=== PATIENT | female | born 1990 | race Caucasian/White ===

== ENCOUNTER 2019-06-17 23:00 | Emergency (ER) | payer MEDICAID, SELFPAY ==
[2019-06-17 23:04] VITALS: BP 120/82; PULSE 98; RESP 17; TEMP 36.7; O2SAT 99; BMI 40.7
[2019-06-17 23:09] VITALS: BP 98/51; PULSE 74; RESP 18; TEMP 36.8; O2SAT 100
--- NOTE | 2019-06-17 23:12 | ED_ITS ---
Entered by Gabriela Lorenzo, acting as scribe for Janel Ehcevarria HPI - Headache General: Chief Complaint: Headache Stated Complaint: congested/headache Time Seen by Provider: 06/17/19 23:12 Source: patient and family Mode of arrival: ambulatory History of Present Illness: HPI Narrative: 28 y/o female presents to the ED with complaint of PATEL. Pt states she has had this discomfort for about a week. She reports light sensitivity and sound sensitivity. Pt has hx of migranes but this episode is much worse than previous. MD elicited complaint: headache Pertinent past history: migraines Onset (ago): week(s) (1) Onset description: suddenly Location: frontal Severity: moderate Quality & Timing: throbbing Exacerbating factors: movement of head/neck, light and noise Relieving factors: nothing Associated symptoms: Reports eye pain, photophobia and sound sensitivity; Deny chest pain, confusion, diaphoresis, fever(s), loss of vision, malaise, nausea, neck stiffness, pre-syncope, rash, syncope or vomiting Review of Systems 2 General: Reports: other (negative unless marked) Const: Denies: fever, chills, body aches, fatigue, malaise or diaphoresis Eyes: Denies: change in vision or blurry vision ENMT: Denies: throat pain, painful swallowing, hoarseness, ear pain, ear discharge, Change in hearing or nasal discharge Card: Denies: chest pain, palpitations, irregular heart rhythm, syncope, pre- syncope, shortness of breath on exertion or shortness of breath when lying down Resp: Denies: shortness of breath, productive cough, non-productive cough, wheezing, coughing up blood or chest congestion GI: Denies: abdominal pain, nausea, vomiting, vomiting blood, coffee grounds in vomit, diarrhea, constipation, cramping, blood in stool or black tarry stool : Denies: flank pain, painful urination, urinary frequency, urinary urgency, decreased urine ouput, urinary incontinence or blood in urine Musc: Denies: neck pain, back pain, extremity pain, extremity swelling, joint pain, joint swelling, joint warmth or joint stiffness Skin/Breast: Denies: rash, skin tenderness or yellow skin Neuro: Denies: numbness in extremities, weakness in extremities, changes in sensation, lack of coordination, difficulty walking, dizziness, vertigo or confusion Endo: Denies: excessive thirst, tired all the time, cold intolerance, excessive sweating, flushing or hot flashes Gregory/Lymph: Denies: easy bruising, easy bleeding, petechiae or enlarged lymph nodes All/Imm: Denies: hives, throat swelling, tongue swelling, facial swelling or acute wheezing PFSH ED PFSH: Statuses (acute, chronic, etc) shown below reflect problem list status as previously entered and may not be historically accurate Social History Smoking and tobacco status: current every day smoker Physical Exam Const: COMMON NORMALS: no apparent distress, oriented x3, no limitations, healthy appearing and well nourished EXAM LIMITATIONS: no altered mental status GENERAL APPEARANCE: cooperative, well kempt and well developed ORIENTATION/CONSCIOUSNESS: Yes awake HENMT: COMMON NORMALS: normocephalic, head/scalp atraumatic, hearing grossly normal bilaterally, external ears normal, EAC's normal, external nose normal and moist oral mucous membranes HEAD & SCALP: normal to inspection, normocephalic and atraumatic FACE & SINUS: normal facial exam and face symmetric NOSE: external nose normal and nares normal EXTERNAL EAR: Yes external ears normal EXTERNAL AUDITORY CANAL: EAC's normal MOUTH: oral and palatal mucosa normal and tongue normal Eye: COMMON NORMALS: PERRL, EOMs intact bilaterally, conjunctivae normal and no scleral icterus GENERAL EYE: normal appearance of both eyes and normal light reflex CONJUNCTIVA: Yes conjunctivae normal SCLERA: sclerae normal CORNEA: Yes corneas normal PUPIL: Yes PERRL DIRECT OPHTHALMOSCOPY: Yes normal light reflex and Yes photophobia Neck/C-Spine: COMMON NORMALS: full ROM, no lymphadenopathy, supple, no meningeal signs and no JVD GENERAL: Yes normal visual inspection and Yes trachea midline CERVICAL SPINE: Yes cervical ROM normal Chest: COMMONS NORMALS: inspection of chest normal and palpation of chest normal Resp: COMMON NORMALS: normal respiratory effort, no retractions, no use of accessory muscles and clear to auscultation bilaterally EFFORT & INSPECTION: Yes able to speak in complete sentences AUSCULTATION: clear to auscultation bilaterally Cardio: COMMON NORMALS: no JVD, regular rate, regular rhythm, S1 normal heart sound, S2 normal heart sound, no gallops, no clicks, no murmurs and no rub JUGULAR VENOUS DISTENTION: no JVD RATE: regular rate RHYTHM: regular rhythm HEART SOUNDS: S1 normal and S2 normal GI: COMMON NORMALS: soft to palpation, non-tender, no hepatosplenomegaly and no masses INSPECTION: Yes normal to inspection PALPATION: Yes soft and Yes no hepatosplenomegaly : COMMON NORMALS: Yes no CVA tenderness BLADDER/KIDNEY EXAM: Yes no CVA tenderness Back/Pelvis: COMMON NORMALS: no CVA tenderness, thoracic and lumbar spine normal to inspection, no thoracic nor lumbar tenderness and thoraco-lumbar ROM normal Extremity: COMMON NORMALS: normal to inspection, full ROM, normal capillary refill, no joint enlargement, no clubbing, cyanosis or edema and no calf tenderness Neuro: COMMON NORMALS: oriented x3, CN's II-XII intact bilaterally, moves all extremities, no focal motor deficits and no sensory deficits noted MENINGEAL SIGNS: Yes no meningeal signs Psych: COMMON NORMALS: mental status grossly normal, thought process normal, cooperative, affect normal, speech normal and activity/motor behavior normal APPEARANCE: Yes well kempt SPEECH: Yes normal speech THOUGHT PROCESS: normal thought process Skin: COMMON NORMALS: no rashes or lesions noted, skin turgor normal, no jaundice, no petechiae and no mottling GENERAL SKIN EXAM: no rashes or lesions noted and turgor normal Course Vital Signs: Vital signs: Vital Signs Temperature 98.3 F 06/17/19 23:09 Pulse Rate 74 06/18/19 00:57 Respiratory Rate 18 06/18/19 00:57 Blood Pressure 108/60 06/18/19 00:57 Pulse Oximetry 100 06/18/19 00:57 MDM - Headache MDM Narrative: Medical decision making narrative: 00:44 -patient comes in with a headache that is been present for a week and a half. It was gradual in onset and not a sudden onset thunderclap type headache. She has no fever, stiff neck and no vomiting. She has no rash. Her white count was slightly elevated and I did recommend and offered to do a spinal tap but the patient refused. Clinically at this time she is much better. She also had a component this sounded like a cluster headache and by applying oxygen here she did get better. She does agree to return should her symptoms change or worsen but at this time she is feeling much better and would like to go home. Lab Data: Attestation: I reviewed the patient's lab results. Labs: Lab Results 06/17/19 06/17/19 06/18/19 Range/Units 23:38 23:38 00:23 WBC 16.5 H (4.0-10.0) 10^3/ uL RBC 4.42 (4.1-5.3) 10^6/u L Hgb 11.9 (11.5-15.3) g/dL Hct 37.9 (37.0-47.0) % MCV 85.7 (81-99) fL MCH 26.9 L (28.0-34.0) pg MCHC 31.4 (30.0-36.0) g/dL RDW 12.2 (12.1-15.1) % Plt Count 341 (130-400) 10^3/c mm MPV 10.0 (7.4-10.4) fL Neut % (Auto) 66.7 % Lymph % (Auto) 26.5 % [place] % (Auto) 4.5 % Eos % (Auto) 1.5 % Baso % (Auto) 0.5 % Neut # (Auto) 11.0 H (1.8-7.7) 10^3/u L Lymph # (Auto) 4.4 (0.8-4.8) 10^3/u L [place] # (Auto) 0.8 (0.2-0.9) 10^3/u L Eos # (Auto) 0.2 (0.0-0.8) 10^3/u L Baso # (Auto) 0.1 (0.0-0.1) 10^3/u L Nucleated RBC % (a uto) 0 % Nucleated RBCs # 0.0 /100WBC Sodium 134 L (136-145) mmol/L Potassium 3.7 (3.5-5.1) mmol/L Chloride 100 (98-107) mmol/L Carbon Dioxide 21 L (22-29) mmol/L Anion Gap 16.7 (5-19) BUN 15 (6-20) mg/dL Creatinine 0.7 (0.5-0.9) mg/dL GFR Calculation 98.9 (90-130) mL/min Glucose 87 (74-109) mg/dL Calcium 9.9 (8.6-10.0) mg/Dl Total Bilirubin 0.3 (0.15-1.2) mg/dL AST 21 (0-32) U/L ALT 21 (0-33) U/L Alkaline Phosphata se 100 (35-105) IU/L Total Protein 8.0 (6.6-8.7) g/dL Albumin 4.3 (3.5-5.2) g/dL Globulin 3.7 (1.3-4.6) g/dL Urine Color Yellow (Yellow) Urine Appearance Clear (CLEAR) Urine pH 5 (5-7) Ur Specific Gravit y 1.015 (1.005-1.030) Urine Protein Neg (Negative) Urine Glucose (UA) Norm (Normal) Urine Ketones Negative (Negative) Urine Occult Blood Neg (Negative) Urine Nitrate Negative (Negative) Urine Bilirubin Neg (NEGATIVE) Urine Urobilinogen Norm (Negative) mg/dL Ur Leukocyte Fartun ase Negative (Negative) Urine RBC 0-4 H (0-2) /hpf Urine WBC 5-10 H (0-5) /hpf Ur Squamous Epith Cells 25-40 H (0-5) Urine Bacteria 2+ H (NONE) Urine Mucus 1+ Discharge Plan Discharge Patient Disposition: Home, Self-Care Clinical Impression: Migraine Qualifiers: Migraine type: without aura Status migrainosus presence: with status migrainosus Intractability: not intractable Qualified Code(s): G43.001 - Migraine without aura, not intractable, with status migrainosus Cluster headache syndrome Qualifiers: Headache chronicity pattern: unspecified pattern Intractability: not intractable Qualified Code(s): G44.009 - Cluster headache syndrome, unspecified, not intractable Condition: Stable Prescriptions: New Zofran 4 mg tablet 4 mg PO DAILY PRN (Reason: nausea and vomiting) 5 Days Qty: 20 RF: 0 Discharge Orders: Discharge Order (Routine); Ordered 06/18/19 Ordered By: Janel Echevarria Referrals: Jose Larson MD [Family Provider] - 1-3 days Discharge Diet: Usual diet Discharge Activity: Increase activity as tolerated Patient Instructions: Cluster Headache (ED), Migraine Headache (ED), Acute Headache (ED) Activity Restrictions/Additional Instructions: Please return to the ER immediately for any of the signs or symptoms listed on your discharge instruction sheets, worsening/changing of your symptoms, you are not getting better as quickly as expected, or for ANY other cause or concerns. I have recommended and offered a spinal tap/lumbar puncture to rule out meningitis but you have refused. If your symptoms change, you develop a fever, you develop neck pain or stiffness please return to the ER immediately for recheck. Discharge Date/Time: 06/18/19 00:59 Coding Level of Care Code ED Lens Marker for Chg Fwd Exam Problem Focused The documentation recorded by the Bj jones Ashley, accurately reflects the service I personally performed and the decisions made by me, Janel Echevarria
--- NOTE | 2019-06-17 23:21 | CTR_ITS ---
PROCEDURE INFORMATION: Exam: CT Head Without Contrast Exam date and time: 06/17/2019 11:22 PM Age: 28 years old Clinical indication: Pain; Headache not specified; Additional info: Mac/ams TECHNIQUE: Imaging protocol: Computed tomography of the head without contrast. Total DLP: 1822.99 mGy-cm Radiation optimization: All CT scans at this facility use at least one of these dose optimization techniques: automated exposure control; mA and/or kV adjustment per patient size (includes targeted exams where dose is matched to clinical indication); or iterative reconstruction. COMPARISON: CT head wo con* [id number] 04/08/2017 5:35 PM FINDINGS: Brain: Normal. No hemorrhage. Unremarkable white matter. No mass effect. Ventricles: Normal. No ventriculomegaly. Bones/joints: Unremarkable. No acute fracture. Sinuses: Paranasal sinus opacifications. Mastoid air cells: Visualized mastoid air cells are well aerated. Soft tissues: Unremarkable. CT/CT head wo con* [id number] IMPRESSION: Negative for intracranial hemorrhage or mass effect. Radiation Dose CTDIVOL = (mGy): DLP = 1822.99 (mGy-cm)
[2019-06-17 23:45] LABS: Basophils # 0.1 10^3/uL (0.0-0.1); Basophils % 0.5 %; Eosinophils # 0.2 10^3/uL (0.0-0.8); Eosinophils % 1.5 %; Hematocrit 37.9 % (37.0-47.0); Hemoglobin 11.9 g/dL (11.5-15.3); Lymphocytes # 4.4 10^3/uL (0.8-4.8); Lymphocytes % 26.5 %; Mean Corpuscular HGB Conc 31.4 g/dL (30.0-36.0); Mean Corpuscular Hemoglobin 26.9 pg (28.0-34.0); Mean Corpuscular Volume 85.7 fL (81-99); Monocytes # 0.8 10^3/uL (0.2-0.9); Monocytes % 4.5 %; Neutrophils % 66.7 %; Nucleated Red Blood Cells % 0 %; Platelet Count 341 10^3/cmm (130-400); Red Blood Count 4.42 10^6/uL (4.1-5.3); Red Cell Distribution Width 12.2 % (12.1-15.1); White Blood Count 16.5 10^3/uL (4.0-10.0)
--- NOTE | 2019-06-17 23:52 | PC.NURSE ---
Introduced self to patient and initiated vital signs. Pt is A&O x 4 and agreeable. Pt states that the reason for the ER visit today is due to headache and congestion. Reassured patient of needs and will continue to monitor. Awaiting provider at bedside.
[2019-06-17 23:57] LABS: Alanine Aminotransferase 21 U/L (0-33); Albumin Level 4.3 g/dL (3.5-5.2); Alkaline Phosphatase 100 IU/L (35-105); Anion Gap 16.7 (5-19); Blood Urea Nitrogen 15 mg/dL (6-20); Calcium 9.9 mg/Dl (8.6-10.0); Carbon Dioxide 21 mmol/L (22-29); Chloride 100 mmol/L (98-107); Globulin 3.7 g/dL (1.3-4.6); Glomerular Filtration Rate 98.9 mL/min (90-130); Glucose 87 mg/dL (74-109); Potassium 3.7 mmol/L (3.5-5.1); Sodium 134 mmol/L (136-145); Total Bilirubin 0.3 mg/dL (0.15-1.2)
[2019-06-18 00:57] VITALS: BP 108/60; PULSE 74; RESP 18; O2SAT 100
[2019-06-18 01:04] LABS: Bacteria Urine 2+; Bilirubin Urine Neg (NEGATIVE); Blood Urine Neg (Negative); Glucose Urine UA Norm (Normal); Ketones Urine Negative (Negative); Leukocyte Esterase Urine Negative (Negative); Mucus Urine 1+; Nitrate Urine Negative (Negative); Protein Urine Neg (Negative); RBC Urine 0-4 /hpf (0-2); Specific Gravity, Urine 1.015 (1.005-1.030); Squamous Epithelial Cell Urine 25-40 (0-5); Urine Appearance Clear (CLEAR); Urine Color Yellow (Yellow); Urobilinogen Urine Norm (Negative); pH Urine 5 (5-7)
[2019-06-18 01:05] LABS: Add Urine Culture? No
[2019-06-18 01:54] LABS: Aspartate Amino Transferase 21 U/L (0-32)
== END 2019-06-18 00:59 | disposition home or self-care (01) ==
PROVIDERS: Emergency Provider Emergency Medicine; Family Provider Pediatrics
DX: G43.001 Migraine without aura, not intractable, with status migrainosus (principal); F17.210 Nicotine dependence, cigarettes, uncomplicated
CPT/HCPCS: 70450; 80053; 81001; 85025; 99282

== ENCOUNTER 2019-10-27 13:50 | Emergency (ER) | payer MEDICAID, SELFPAY ==
[2019-10-27 14:39] VITALS: BP 124/81; PULSE 67; RESP 18; TEMP 36.9; O2SAT 97; BMI 35.4
[2019-10-27 15:50] VITALS: RESP 17
--- NOTE | 2019-10-27 16:07 | W.ED.SKABFB ---
HPI - Skin/Abscess/Foreign Bdy General: Chief complaint: Skin/Abscess/Foreign Body Stated complaint: rash R thigh, possible abscess Time Seen by Provider: 10/27/19 16:02 Source: patient Mode of arrival: ambulatory Limitations: no limitations History of Present Illness: HPI narrative: Patient is a 29-year-old female who presents to ED today with complaints of a possible abscess to her right thigh that she noticed over the past few days. Patient states she has had these previously and they have went away on their own however one has never been this large before. She is not having any drainage. No fevers. MD complaint: abscess/boil Onset (ago): day(s) Tetanus up to date: yes Location: RLE Severity: moderate Quality: burning Pain Consistency: constant Relieving factors: none Exacerbating factors: none Associated symptoms: Deny fever(s) Review of Systems Const: Denies: fever(s) Skin/Breast: Reports: new lesions Neuro: Denies: numbness in extremities or sensory changes PFS ED PFSH: Social History Smoking and tobacco status: current every day smoker Physical Exam Const: COMMON NORMALS: no acute distress, patient oriented x3, no limitations and alert Extremity: COMMON NORMALS: normal to inspection and full ROM GENERAL: Yes normal exam except as noted OTHER: see skin assessment Neuro: COMMON NORMALS: patient oriented x3 SENSORIUM/ORIENTATION: Yes alert Skin: NARRATIVE SKIN EXAM: pt with 4in x 2.5in annular area to R lateral thigh with central mild hemorrhage; there is vesication to the center and superior portion of lesion (she states this has been present with other previous lesions as well) Course Vital Signs: Vital signs: Vital Signs Temperature 98.5 F 10/27/19 14:39 Pulse Rate 67 10/27/19 14:39 Respiratory Rate 18 10/27/19 14:39 Blood Pressure 124/81 10/27/19 14:39 Pulse Oximetry 97 10/27/19 14:39 MDM - Skin/Abscess/Foreign Bdy MDM Narrative: Medical decision making narrative: lesion does not look characteristically like an abscess; it looks more like a spider bite however she states she has had these before so would be unlikely that she would have multiple spider bites previously; does not appear herpetic; will go ahead and place patient on Bactrim; recommend close follow-up in 48 hours if lesion is continuing to worsen despite antibiotic therapy Discharge Plan Discharge Patient Disposition: Home, Self-Care Clinical Impression: Abscess of right thigh Condition: Stable Prescriptions: New Bactrim DS 800-160 mg tablet 1 tab PO BID 7 Days Qty: 14 RF: 0 Discharge Orders: Discharge Order (Routine); Ordered 10/27/19 Ordered By: Britt Cee Activity Restrictions/Additional Instructions: Return to ED in 48 hours if abscess continues to worsen despite antibiotic therapy. Discharge Date/Time: 10/27/19 16:24 Coding Level of Care Code ED Signing Teacher for Rivas Hart
[2019-10-27 16:23] VITALS: BP 123/79; PULSE 18; RESP 65; O2SAT 98
== END 2019-10-27 16:24 | disposition home or self-care (01) ==
PROVIDERS: Emergency Provider Physician Assistant
DX: L02.415 Cutaneous abscess of right lower limb (principal); F17.210 Nicotine dependence, cigarettes, uncomplicated
CPT/HCPCS: 12345; 99282

== ENCOUNTER → 2019-11-28 09:21 | Outpatient (BNVA) | payer MEDICAID, SELFPAY | PROVIDERS: Visit Provider Obstetrics & Gynecology | DX: Z01.419 Encounter for gynecological examination (general) (routine) without abnormal findings (principal) | CPT/HCPCS: 85025 ==

== ENCOUNTER 2019-12-24 21:35 | Emergency (ER) | payer MEDICAID, SELFPAY ==
[2019-12-24 21:39] VITALS: BP 113/77; PULSE 98; RESP 18; TEMP 36.8; O2SAT 98; BMI 35.4
--- NOTE | 2019-12-24 22:04 | ED_ITS ---
HPI - General Adult General: Chief complaint: General Medical Stated complaint: sore throat Time Seen by Provider: 12/24/19 21:48 Source: patient Mode of arrival: ambulatory Limitations: no limitations History of Present Illness: HPI narrative: Patient comes in today with complaints of sore throat starting yesterday. Patient also reports some chills. Patient appears well. Patient appears no acute distress. Patient does also report some tonsillar enlargement with white patches. Review of Systems General: Reports: 10 or more systems reviewed and unremarkable except in HPI and below ENMT: Reports: throat pain PFSH ED PFSH: Medical History (Updated 12/24/19 @ 22:35 by JEANMARIE Miller) Asthma -Diagnosed as a child-uses it intermittently-last use was in spring 2019. Bipolar 1 disorder -Diagnosed in her early 20s seizures-was on medication in the past but has not seen a therapist or been on medication since at least 2014. Denies suicidal/homicidal ideation today. No pertinent past medical history Denies: high blood pressure, diabetes, heart, liver, kidney, thyroid, bleeding problems, or clotting problems. PCP: None Surgical History S/P eye surgery 1997--Performed at [facility] in [place], [place] --- Eye surgery done after trauma to eye S/P tubal ligation 08/27/2018--Bilateral tubal ligation @ [place], [place]. Dr. Montano. Family History Family/Other Seizure uncle and cousin Mother Asthma Sister Asthma Father Hypertension Hyperlipidemia Heart disease Diabetes Brother Hypertension Grandmother Hypertension paternal Heart disease paternal Grandfather Hypertension paternal Denies family history of Colon cancer Ovarian cancer Uterine cancer Thyroid condition Stroke Social History Smoking and tobacco status: current every day smoker Alcohol intake: unknown Additional social history: - Tobacco Use: Started smoking at age 17 and has smoked up to 1/2 pack per day since then. Currently smokes 2-3 cigarettes daily. 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 Has not used any other drugs in the past. -Denies current use of any drugs. 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 Female Reproductive History: Date of last menstrual period: 12/24/19 Physical Exam Const: COMMON NORMALS: no acute distress and patient oriented x3 GENERAL APPEARANCE: cooperative HENMT: COMMON NORMALS: normocephalic, TM's normal bilaterally and Normal external nose present HEAD & SCALP: normal to inspection and normocephalic NOSE: Normal external nose present TYMPANIC MEMBRANE: TM's normal bilaterally MOUTH: Normal oral and palatal mucosa present THROAT: abnormal tonsil bilateral exudates and hypertrophy Eye: GENERAL EYE: appearance normal, both eyes and all related structures Neck/C-Spine: COMMON NORMALS: full ROM Lymph: LYMPHATIC: no lymphadenopathy noted Chest: COMMONS NORMALS: normal inspection of the chest Resp: COMMON NORMALS: normal respiratory effort EFFORT & INSPECTION: Yes able to speak in complete sentences Cardio: COMMON NORMALS: regular rate and regular rhythm RATE: regular rate RHYTHM: regular rhythm GI: COMMON NORMALS: non-tender Back/Pelvis: COMMON NORMALS: thoracic and lumbar spine normal to inspection Extremity: COMMON NORMALS: normal to inspection Neuro: COMMON NORMALS: patient oriented x3 and moves all extremities Psych: COMMON NORMALS: mental status grossly normal and cooperative Skin: COMMON NORMALS: no rashes or lesions noted GENERAL SKIN EXAM: no rashes or lesions noted Course Vital Signs: Vital signs: Vital Signs Temperature 98.3 F 12/24/19 21:39 Pulse Rate 98 12/24/19 21:39 Respiratory Rate 18 12/24/19 21:39 Blood Pressure 113/77 12/24/19 21:39 Pulse Oximetry 98 12/24/19 21:39 MDM - General Adult MDM Narrative: Medical decision making narrative: Patient comes in with a sore throat, tonsillar enlargement, and exudate to tonsils. Patient does report history of strep. Differential diagnosis includes but not limited to strep pharyngitis, tonsillitis, infectious mono. Strep test was positive. Reviewed exam with patient with recommendations for treatment. Patient reports understanding agreed to plan. Lab Data: Labs: Lab Results 12/24/19 Range/Units 22:07 Group A Strep Rapi d Positive H (Negative) Discharge Plan Discharge Patient Disposition: Home Clinical Impression: Strep pharyngitis Condition: Stable Prescriptions: New amoxicillin 500 mg tablet 1,000 mg PO BID 10 Days Qty: 40 RF: 0 Discharge Orders: Discharge Order (Routine); Ordered 12/24/19 Ordered By: Tito Soto Discharge Diet: Usual diet Discharge Activity: Increase activity as tolerated Patient Instructions: Strep Throat (ED) Activity Restrictions/Additional Instructions: Take antibiotics as directed. After 24 hours he should be noncontagious. Use acetaminophen or ibuprofen for pain. Avoid really acidic or spicy foods. Take antibiotics until you are feeling better and then for at least another 24 hours. Change out toothbrush after 24 hours. Follow-up with primary care for worsening signs and symptoms or new concerns. Coding Level of Care Code ED Vacuum Caster for Rivas Hart Exam Comprehensive
[2019-12-24 22:20] LABS: Rapid Strep A Test Positive (Negative)
[2019-12-24] MEDS: dexamethasone 4 mg Tablet 10 MG PO (22:51)
[2019-12-24] MEDS: amoxicillin 500 mg Capsule 1000 MG PO (22:52)
[2019-12-24 22:53] VITALS: BP 122/80; PULSE 74; RESP 18; O2SAT 99
== END 2019-12-24 22:55 | disposition home or self-care (01) ==
PROVIDERS: Emergency Provider Nurse Practitioner Family
DX: J02.0 Streptococcal pharyngitis (principal); F17.210 Nicotine dependence, cigarettes, uncomplicated
CPT/HCPCS: 12345; 87880; 99281; 99283; J8540

== ENCOUNTER 2020-03-16 21:28 | Emergency (ER) | payer MEDICAID, SELFPAY ==
[2020-03-16 21:31] VITALS: BP 110/72; PULSE 96; RESP 16; TEMP 36.4; O2SAT 97; BMI 35.4
--- NOTE | 2020-03-16 21:39 | W.ED.EXTPRO ---
HPI - Extremity Problem General: Chief complaint: Extremity Injury, Lower Stated complaint: fall, pain in ankles and knee Time Seen by Provider: 03/16/20 21:39 History of Present Illness: HPI Narrative: Patient was stepping off a step and and fell twisting her right and left ankle she says. She also landed on her right knee and bilateral palms of the hand. Patient complains of abrasion to the right knee as her main complaints but also has some tenderness to her left ankle. Patient also has some mild tenderness to her left palm. Patient appears well. Patient appears no acute distress. Patient states that her boss from her employment recommend that she be evaluated in the ER for Workmen's Comp. Review of Systems General: Reports: 10 or more systems reviewed and unremarkable except in HPI and below Musc: Reports: joint pain Skin/Breast: Reports: other (abrasion) [facility] ED PFSH: Medical History (Updated 03/16/20 @ 21:45 by JEANMARIE Miller) Asthma -Diagnosed as a child-uses it intermittently-last use was in spring 2019. Bipolar 1 disorder -Diagnosed in her early 20s seizures-was on medication in the past but has not seen a therapist or been on medication since at least 2014. Denies suicidal/homicidal ideation today. No pertinent past medical history Denies: high blood pressure, diabetes, heart, liver, kidney, thyroid, bleeding problems, or clotting problems. PCP: None Surgical History S/P eye surgery 1997--Performed at [facility] [place] --- Eye surgery done after trauma to eye S/P tubal ligation 08/27/2018--Bilateral tubal ligation @ [place], [place]. Dr. Montano. Family History Family/Other Seizure uncle and cousin Mother Asthma Sister Asthma Father Hypertension Hyperlipidemia Heart disease Diabetes Brother Hypertension Grandmother Hypertension paternal Heart disease paternal Grandfather Hypertension paternal Denies family history of Colon cancer Ovarian cancer Uterine cancer Thyroid condition Stroke Social History Smoking and tobacco status: current every day smoker Alcohol intake: unknown Additional social history: - Tobacco Use: Started smoking at age 17 and has smoked up to 1/2 pack per day since then. Currently smokes 2-3 cigarettes daily. 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 Has not used any other drugs in the past. -Denies current use of any drugs. 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 Female Reproductive History: Date of last menstrual period: 12/24/19 Physical Exam Const: COMMON NORMALS: no acute distress and patient oriented x3 GENERAL APPEARANCE: cooperative HENMT: COMMON NORMALS: normocephalic and Normal external nose present HEAD & SCALP: normal to inspection and normocephalic NOSE: Normal external nose present MOUTH: Normal oral and palatal mucosa present THROAT: posterior oropharynx normal Eye: GENERAL EYE: appearance normal, both eyes and all related structures Neck/C-Spine: COMMON NORMALS: full ROM Lymph: LYMPHATIC: no lymphadenopathy noted Chest: COMMONS NORMALS: normal inspection of the chest Resp: COMMON NORMALS: normal respiratory effort EFFORT & INSPECTION: Yes able to speak in complete sentences Cardio: COMMON NORMALS: regular rate and regular rhythm RATE: regular rate RHYTHM: regular rhythm GI: COMMON NORMALS: non-tender : COMMON NORMALS: Yes no CVA tenderness BLADDER/KIDNEY EXAM: Yes no CVA tenderness Back/Pelvis: COMMON NORMALS: no CVA tenderness and thoracic and lumbar spine normal to inspection Extremity: NARRATIVE EXTREMITY EXAM: Minimal swelling is noted to the bilateral ankles. Tenderness is noted to the malleus of the left ankle. No laxity of the ankles noted. Normal range of motion of the right knee. Mild tenderness to the tibial tuberosity of the right knee. Abrasion is over the tibial tuberosity of the Neuro: COMMON NORMALS: patient oriented x3 and moves all extremities Psych: COMMON NORMALS: mental status grossly normal and cooperative Skin: NARRATIVE SKIN EXAM: Abrasion to the right knee. Superficial abrasion to the left palm of hand. Superficial abrasion to the palm of the right hand. Course Vital Signs: Vital signs: Vital Signs Temperature 97.6 F 03/16/20 21:31 Pulse Rate 96 03/16/20 21:31 Respiratory Rate 16 03/16/20 21:31 Blood Pressure 110/72 03/16/20 21:31 Pulse Oximetry 97 03/16/20 21:31 MDM - Extremity (Nontraumatic) MDM Narrative: Medical decision making narrative: Patient comes in today for complaints of injury to the left ankle, right knee, and left palm. On exam patient has some superficial abrasions. Patient has normal range of motion of the extremities. Pulses are noted distally. No obvious deformity is noted. Differential diagnosis includes but not limited to contusion, abrasion, sprain. Reviewed exam with patient recommended monitoring for worsening symptoms or new concerns. Patient reported understanding agreed to plan. Discharge Plan Discharge Patient Disposition: Home Clinical Impression: Fall (on) (from) other stairs and steps, initial encounter, Contusion of right knee, initial encounter Left ankle sprain Qualifiers: Encounter type: initial encounter Involved ligament of ankle: unspecified ligament Qualified Code(s): S93.402A - Sprain of unspecified ligament of left ankle, initial encounter Abrasion hand Qualifiers: Encounter type: initial encounter Laterality: unspecified laterality Qualified Code(s): S60.519A - Abrasion of unspecified hand, initial encounter Condition: Stable Discharge Orders: Discharge Order (Routine); Ordered 03/16/20 Ordered By: Tito Soto Discharge Diet: Usual diet Discharge Activity: Increase activity as tolerated Patient Instructions: Contusion in Adults (ED) Activity Restrictions/Additional Instructions: Activity as tolerated. Acetaminophen or ibuprofen for pain. Drink plenty of fluids. Use ice packs for further comfort relief. Clean abrasions and use antibiotic ointment as needed. Follow-up with primary care for further treatment and evaluation. Coding Level of Care Code ED Printed Circuit Board Panels Plater for Rivas Hart
[2020-03-16 22:05] VITALS: BP 112/74; PULSE 90; RESP 16; O2SAT 98
== END 2020-03-16 22:06 | disposition home or self-care (01) ==
PROVIDERS: Emergency Provider Nurse Practitioner Family
DX: S93.402A Sprain of unspecified ligament of left ankle, initial encounter (principal); S60.519A Abrasion of unspecified hand, initial encounter; S80.01XA Contusion of right knee, initial encounter; X50.1XXA Overexertion from prolonged static or awkward postures, initial encounter; F17.210 Nicotine dependence, cigarettes, uncomplicated
CPT/HCPCS: 12345; 99281

== ENCOUNTER 2020-09-05 13:22 | Emergency (ER) | payer BC, MEDICAID, SELFPAY ==
[2020-09-05 13:23] VITALS: BP 133/86; PULSE 92; RESP 18; TEMP 36.5; O2SAT 95; BMI 35.4
--- NOTE | 2020-09-05 13:36 | ED_ITS ---
HPI - URI/Sore Throat General: Chief Complaint: Upper Respiratory Infection Stated Complaint: Tonsils swollen Time Seen by Provider: 09/05/20 13:29 Source: patient Mode of arrival: ambulatory Limitations: no limitations History of Present Illness: HPI Narrative: Patient is a 29-year-old female who presents to ED today with complaint of a sore throat and painful swallowing. Patient states symptoms have been present over the past week. She is able to tolerate liquids. She is not having any trouble controlling her own secretion. She has not been running fevers. Patient tells me she has had 3 almost identical episodes like this over the past few months. She states symptoms usually last for 2 to 3 days and then subside on their own. She was concerned today because symptoms have been present for almost a week. MD elicited complaint: sore throat Onset (ago): day(s) Consistency: constant Severity: moderate Able to tolerate fluids by mouth: Yes Exacerbating factors: swallowing Relieving factors: nothing Associated symptoms: Deny chills, chest pain, ear or mastoid pain, fever(s), headache(s), nasal congestion, nausea, sinus pain or vomiting Review of Systems Const: Denies: fever(s), chills, body aches, fatigue or malaise Eyes: Denies: change in vision, blurry vision or photophobia ENMT: Reports: throat pain, enlarged tonsils and odynophagia; Denies: uvular edema, swelling of lips/tongue, oral sores, ear or mastoid pain, nasal discharge, nasal congestion, post nasal drip or sinus pain Card: Denies: chest pain Resp: Denies: dyspnea GI: Denies: nausea or vomiting Musc: Denies: neck pain Skin/Breast: Denies: rash Neuro: Denies: headache(s) [facility] ED PFSH: Medical History (Updated 09/05/20 @ 14:51 by AMBER Atkinson) Asthma -Diagnosed as a child-uses it intermittently-last use was in spring 2019. Bipolar 1 disorder -Diagnosed in her early 20s seizures-was on medication in the past but has not seen a therapist or been on medication since at least 2014. Denies suicidal/homicidal ideation today. No pertinent past medical history Denies: high blood pressure, diabetes, heart, liver, kidney, thyroid, bleeding problems, or clotting problems. PCP: None Surgical History S/P eye surgery 1997--[place] [facility] [place] --- Eye surgery done after trauma to eye S/P tubal ligation 08/27/2018--Bilateral tubal ligation @ [place], [place]. Dr. Montano. Family History Family/Other Seizure uncle and cousin Mother Asthma Sister Asthma Father Hypertension Hyperlipidemia Heart disease Diabetes Brother Hypertension Grandmother Hypertension paternal Heart disease paternal Grandfather Hypertension paternal Denies family history of Colon cancer Ovarian cancer Uterine cancer Thyroid condition Stroke Social History Smoking and tobacco status: current every day smoker Alcohol intake: unknown Additional social history: - Tobacco Use: Started smoking at age 17 and has smoked up to 1/2 pack per day since then. Currently smokes 2-3 cigarettes daily. 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 Has not used any other drugs in the past. -Denies current use of any drugs. 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 Female Reproductive History: Date of last menstrual period: 12/24/19 Physical Exam Const: COMMON NORMALS: no acute distress, patient oriented x3, no limitations and alert GENERAL APPEARANCE: cooperative ORIENTATION/CONSCIOUSNESS: Yes awake, Yes oriented to person, Yes oriented to place and Yes oriented to time HENMT: COMMON NORMALS: normocephalic, atraumatic, hearing grossly normal bilaterally, external ears normal, EAC's normal, TM's normal bilaterally, Normal external nose present, Normal nasal mucous membranes and turbinates present and moist oral mucous membranes HEAD & SCALP: normal to inspection, normocephalic and atraumatic FACE & SINUS: normal facial exam and sinuses nontender NOSE: Normal external nose present and Normal nasal mucous membranes and t urbinates present EXTERNAL EAR: Yes external ears normal EXTERNAL AUDITORY CANAL: EAC's normal TYMPANIC MEMBRANE: TM's normal bilaterally MOUTH: Normal oral and palatal mucosa present, lip normal and tongue normal THROAT: abnormal tonsil bilateral erythema, exudates and hypertrophy, posterior oropharynx abnormal erythema and other (muffled voice; no submandibular swelling; floor of mouth is soft); no peritonsillar mass and no uvular edema Neck/C-Spine: COMMON NORMALS: full ROM and no lymphadenopathy OTHER: no swelling noted Resp: COMMON NORMALS: normal respiratory effort and clear to auscultation bilaterally AUSCULTATION: clear to auscultation bilaterally Cardio: COMMON NORMALS: regular rate and regular rhythm RATE: regular rate RHYTHM: regular rhythm Neuro: COMMON NORMALS: patient oriented x3 SENSORIUM/ORIENTATION: Yes alert, Yes oriented to person, Yes oriented to place and Yes oriented to time Skin: COMMON NORMALS: no rashes or lesions noted GENERAL SKIN EXAM: no rashes or lesions noted Course Vital Signs: Vital signs: Vital Signs Temperature 97.7 F 09/05/20 13:23 Pulse Rate 80 09/05/20 14:11 Respiratory Rate 18 09/05/20 14:11 Blood Pressure 107/67 09/05/20 14:11 Pulse Oximetry 95 09/05/20 14:11 MDM - URI/Sore Throat MDM Narrative: Medical decision making narrative: Patient has no neck pain, swelling, stiffness or hesitancy to move. She does have a muffled voice however I do not appreciate any peritonsillar swelling at this time. She has bilateral exudative tonsillitis. She has not been running fevers. She does not appear ill. She is able to eat and drink although states this is painful. We will go ahead and place her on clindamycin and give her viscous lidocaine to help with her discomfort. Strict return to ED precautions given if symptoms do not improve. Lab Data: Labs: Lab Results 09/05/20 Range/Units 14:19 Group A Strep Rapi d Negative (Negative) Discharge Plan Discharge Patient Disposition: Home Clinical Impression: Exudative tonsillitis Condition: Stable Prescriptions: New clindamycin HCl 300 mg capsule 300 mg PO Q8H 10 Days Qty: 30 RF: 0 Lidocaine Viscous 2 % solution 15 ml MUCOUS MEM QID Qty: 100 RF: 0 No Action Tylenol 325 mg Tablet 325 - 650 mg PO Q6H PRN (Reason: Pain) RF: 0 ProAir HFA 90 mcg/actuation Hfa Aerosol Inhaler See Rx Instructions .ROUTE .COMPLEX RF: 0 Tylenol PM Extra Strength 25-500 mg Tablet 1 - 2 tab PO Q6H PRN (Reason: PAIN/SLEEP) RF: 0 Discharge Orders: Discharge ED (Routine); Ordered 09/05/20 Ordered By: Britt Cee Patient Instructions: Tonsillitis (ED) Activity Restrictions/Additional Instructions: As discussed please return to the emergency department if symptoms continue to worsen, you are not able to swallow food/liquids, cannot control your own saliva/secretions, high fevers, neck stiffness, or any other concerns you may have. Coding Level of Care Code ED Core Shaper for Rivas Fwriaz Exam Detailed
[2020-09-05 14:11] VITALS: BP 107/67; PULSE 80; RESP 18; O2SAT 95
[2020-09-05 14:38] LABS: Rapid Strep A Test Negative (Negative)
[2020-09-05 14:57] VITALS: BP 109/81; PULSE 70; RESP 18; O2SAT 94
== END 2020-09-05 14:59 | disposition home or self-care (01) ==
PROVIDERS: Emergency Provider Physician Assistant
DX: J03.80 Acute tonsillitis due to other specified organisms (principal); F17.210 Nicotine dependence, cigarettes, uncomplicated
CPT/HCPCS: 87081; 87880; 99282

== ENCOUNTER 2023-11-09 20:46 | Inpatient (IN) | payer SELFPAY ==
[2023-11-09 20:50] VITALS: BP 134/87; PULSE 88; RESP 16; TEMP 36.6; O2SAT 99
--- NOTE | 2023-11-09 21:00 | ECG_ITS ---
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 Measurements Intervals [place] Rate: 71 P: 16 SC: 196 QRS: 61 QRSD: 85 T: 40 QT: 380 QTc: 414 Interpretive Statements SINUS RHYTHM No previous ECG available for comparison Electronically Signed On 11-10-2023 17:21:31 CDT by Balwinder Peters M.D. [id number]
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
[2023-11-09 21:25] LABS: Basophils # 0.1 10^3/uL (0.0-0.1); Basophils % 0.6 %; Eosinophils # 0.1 10^3/uL (0.0-0.8); Eosinophils % 1.5 %; Hematocrit 38.6 % (36-47); Lymphocytes # 2.8 10^3/uL (0.8-4.8); Lymphocytes % 29.8 %; Mean Corpuscular HGB Conc 32.6 g/dL (30-55); Mean Corpuscular Volume 88.7 fl (85-98); Mean Platelet Volume 10.2 fL (7.4-10.4); Monocytes # 0.5 10^3/uL (0.2-0.9); Monocytes % 5.6 %; Neutrophils # 5.77 10^3/uL (1.8-7.7); Neutrophils % 62.3 %; Nucleated Red Blood Cells % 0 %; Platelet Count 259 10^3/cmm (157-399); Red Blood Count 4.35 10^6/uL (3.85-5.65); Red Cell Distribution Width 12.7 % (12.1-15.1); White Blood Count 9.28 10^3/uL (3.29-11.43)
[2023-11-09 21:50] LABS: HCG Qualitative Urine. Negative (Negative)
[2023-11-09 21:52] LABS: Amphetamines Screen Urine Positive (Negative); Barbiturates Screen Urine Negative (Negative); Benzodiazepines Screen Urine Negative (Negative); Cocaine Screen Urine Negative (Negative); Opiate Screen Urine Negative (Negative); PCP Screen Urine Negative (Negative); THC Screen Urine Negative (Negative)
[2023-11-09 21:53] LABS: Alanine Aminotransferase 15 U/L (0-33); Albumin Level 4.4 g/dL (3.5-5.2); Alkaline Phosphatase 71 U/L (35-105); Anion Gap 15.3 (5-19); Aspartate Amino Transferase 17 U/L (0-32); Blood Urea Nitrogen 8 mg/dL (6-20); Calcium 9.5 mg/dL (8.5-10.5); Carbon Dioxide 25 mmol/L (22-29); Chloride 102 mmol/L (98-107); Creatinine Clr Calc Pharmacy 103.9548; Glomerular Filtration Rate 82.1 mL/min (90-130); Glucose 120 mg/dL (65-115); Osmolality Calculated 288 mOsm/kg (285-295); Potassium 3.3 mmol/L (3.5-5.1); Salicylate 0.7 mg/dL (3-10); Sodium 139 mmol/L (136-145); Total Bilirubin 0.4 mg/dL (0.15-1.2); Total Protein 7.4 g/dL (6.6-8.7)
[2023-11-09 21:54] LABS: Thyroid Stimulating Hormone 0.99 uIU/mL (0.27-4.20)
[2023-11-09 21:55] LABS: Acetaminophen < 5.0 ug/mL (10-30); Alcohol Level < 10 mg/dL (0-10)
[2023-11-09 21:56] LABS: Bilirubin Urine Neg (Negative); Blood Urine Neg (Negative); Glucose Urine UA Norm (Normal); Ketones Urine 1+ (Negative); Leukocyte Esterase Urine Negative (Negative); Nitrate Urine Negative (Negative); Protein Urine Neg (Negative); Specific Gravity, Urine 1.025 (1.005-1.030); Urine Appearance Cloudy (CLEAR); Urine Color Yellow (Yellow); Urobilinogen Urine 1 mg/dL (Negative); pH Urine 5 (5-7)
[2023-11-09 21:57] LABS: Add Urine Culture? No; Bacteria Urine 3+ /hpf; Mucus Urine 3+ /hpf; RBC Urine 0-4 /hpf (0-2); Squamous Epithelial Cell Urine 25-40 /hpf (0-5); WBC Urine 0-4 /hpf (0-5)
[2023-11-09 23:06] VITALS: BP 113/81; PULSE 87; RESP 19; TEMP 36.4; O2SAT 98
[2023-11-10 06:00] VITALS: BP 107/70; PULSE 78; RESP 15; O2SAT 97
[2023-11-10 14:00] VITALS: BP 106/69; PULSE 78; RESP 16; O2SAT 97
--- NOTE | 2023-11-10 15:46 | PC.NURSE ---
CPS AGENT CAME TO VISIT PATIENT. THIS NURSE TOOK PT AND CPS AGENT TO HER ROOM FOR PRIVACY AND SAT IN ON THE MEETING FOR SAFETY OF THE PATIENT AND AGENT. PT WAS CALM AND COOPERATIVE WITH MEETING.
[2023-11-10] MEDS: acetaminophen 325 mg Tablet 650 MG PO (16:34)
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
[2023-11-10] MEDS: hyDROXYzine 25 mg Capsule 50 MG PO (21:53)
[2023-11-10] MEDS: quetiapine XR (24HR) 50 mg Tablet PO (21:54)
[2023-11-10] MEDS: ibuprofen 600 mg Tablet PO (21:54)
[2023-11-10 22:00] VITALS: BP 112/67; PULSE 75; RESP 16; TEMP 36.6; O2SAT 98
[2023-11-11 06:00] VITALS: BP 110/71; PULSE 62; RESP 15; O2SAT 98
--- NOTE | 2023-11-11 13:09 | PC.NURSE ---
Patient denies avh and si/hi. When asked if she was feeling depressed she replied that she was, but that it was never going to get better. Patient said she was in extreme pain, but refused medication. She stated that nothing helped it and she didn't want to try ibuprofen or tylenol unless the pain became absolutely unbearable. Patient mumbled quite a bit throughout the assessment and this RN was unable to make out what she was saying.
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
[2023-11-11 14:57] VITALS: BP 106/63; PULSE 81; RESP 14; TEMP 36.6; O2SAT 96
[2023-11-11] MEDS: ibuprofen 600 mg Tablet PO (21:51)
[2023-11-11] MEDS: hyDROXYzine 25 mg Capsule 50 MG PO (21:51)
[2023-11-11] MEDS: quetiapine XR (24HR) 50 mg Tablet 100 MG PO (21:51)
[2023-11-11 22:00] VITALS: BP 108/70; PULSE 82; RESP 16; TEMP 36.7; O2SAT 97
[2023-11-12 06:00] VITALS: BP 98/60; PULSE 77; RESP 16; O2SAT 98
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
[2023-11-12 14:00] VITALS: BP 117/67; PULSE 96; RESP 20; TEMP 36.8; O2SAT 98
[2023-11-12] MEDS: quetiapine XR (24HR) 50 mg Tablet 100 MG PO (20:55)
--- NOTE | 2023-11-12 21:00 | PC.NURSE ---
Pt consuming alot of snacks and made the comment in the dayroom that she is going to eat as much as she can while she is here, because she won't have any food when she gets released .
[2023-11-12 21:28] VITALS: BP 128/90; PULSE 96; RESP 17; TEMP 36.9; O2SAT 97
[2023-11-13 06:00] VITALS: BP 128/77; PULSE 76; RESP 16; O2SAT 97
[2023-11-13 13:24] VITALS: BP 110/80; PULSE 83; RESP 16; TEMP 36.6; O2SAT 97
[2023-11-13 13:52] VITALS: BP 110/80; PULSE 83; RESP 16; TEMP 36.6; O2SAT 97
== END 2023-11-13 18:02 | disposition home or self-care (01) | DRG 885 ==
LOC: ER 22:03 → NP 22:12
PROVIDERS: Admitting Provider Psychiatry & Neurology Psychiatry; Emergency Provider Emergency Medicine; Visit Provider Psychiatry & Neurology Psychiatry
DX: F31.30 Bipolar disorder, current episode depressed, mild or moderate severity, unspecified (principal); R45.851 Suicidal ideations; J45.909 Unspecified asthma, uncomplicated; F17.210 Nicotine dependence, cigarettes, uncomplicated; F15.10 Other stimulant abuse, uncomplicated
CPT/HCPCS: 36415; 80053; 80306; 80307; 81001; 81025; 84443; 85025; 93005; 97150; 97165; 99285

== ENCOUNTER 2024-03-06 13:51 | Emergency (ER) | payer BC, MEDICAID, SELFPAY ==
[2024-03-06 13:59] VITALS: BP 135/84; PULSE 108; RESP 18; TEMP 36.9; O2SAT 99; BMI 35.4
--- NOTE | 2024-03-06 15:37 | ED_ITS ---
HPI - Skin/Abscess/Foreign Bdy General: Chief complaint: Skin/Abscess/Foreign Body Stated complaint: swollen spider bite on face and left leg Time Seen by Provider: 03/06/24 15:36 History of Present Illness: 33-year-old female comes in today for co mplaints of swollen area to the right side of the face. Patient reports some drainage from the wound but then has had some increased swelling to the lower jaw. Patient appears nontoxic. Patient appears no acute distress. Patient does report prior episodes of similar type infections. Related Data Previous Rx's Medication Instructions Recorded quetiapine 50 mg tablet,extended 100 mg (2 x 50 mg) PO BEDTIME 30 11/13/23 release 24 hr days #30 tabs clindamycin HCl 150 mg capsule 450 mg (3 x 150 mg) PO Q8H 7 days 03/06/24 #63 caps Allergies Allergy/AdvReac Type Severity Reaction Status Date / Time bee venom protein (honey bee) Allergy Unknown Verified 03/06/24 14:04 chocolate flavor AdvReac Rash Verified 03/06/24 14:04 Review of Systems General: Reports: 10 or more systems reviewed and unremarkable except in HPI and below PFSH ED PFSH: Medical History (Updated 03/06/24 @ 15:58 by JEANMARIE Miller) Asthma -Diagnosed as a child-uses it intermittently-last use was in spring 2019. Bipolar 1 disorder Dx in her early 20s seizures-was on medication in the past but has not seen a therapist or been on medication since at least 2014. Surgical History S/P eye surgery 1997--Performed at [facility] [place], [place] --- Eye surgery done after trauma to eye S/P tubal ligation 08/27/2018--Bilateral tubal ligation @ [facility], [place], [place]. Dr. Montano. Family History Family/Other Seizure uncle and cousin Mother Asthma Sister Asthma Father Hypertension Hyperlipidemia Heart disease Diabetes Brother Hypertension Grandmother Hypertension paternal Heart disease paternal Grandfather Hypertension paternal Denies family history of Colon cancer Ovarian cancer Uterine cancer Thyroid disease Stroke Social History (Reviewed 10/14/23 @ 13:21 by CHARLOTTE Sanchez Smoking and tobacco/nicotine status: current every day tobacco/nicotine user Alcohol intake: unknown Substance/Drug Use: former Additional social history: - Tobacco Use: Started smoking at age 17 and has smoked up to 1/2 pack per day since then. Currently smokes 2-3 cigarettes daily. Drug Use: -Has used marijuana in the past- -Has also used methamphetamines in the p ast and states she stopped using methamphetamines when she found out she was in 2013 and has been clean since then. Has not used any other drugs in the past. -Denies current use of any drugs. 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 Female Reproductive History: Date of last menstrual period: 03/06/24 Physical Exam Const: COMMON NORMALS: alert HENMT: COMMON NORMALS: normocephalic HEAD & SCALP: normocephalic Neck/C-Spine: COMMON NORMALS: full ROM Resp: COMMON NORMALS: normal respiratory effort Cardio: COMMON NORMALS: regular rate RATE: regular rate Back/Pelvis: COMMON NORMALS: thoracic and lumbar spine normal to inspection Extremity: COMMON NORMALS: normal to inspection Neuro: SENSORIUM/ORIENTATION: Yes alert Skin: NARRATIVE SKIN EXAM: Redness and induration to the right facial cheek. Procedures Abscess I/D Site: face Side (if applicable): right Local Anesthetic: lidocaine 2% and with epi Amount of anesthesia used (mL): 2 Technique: incised with #11 blade Amount of fluid expressed (mL): 1 Irrigation: Yes Packing used?: none Complications: pain Course Vital Signs: Vital signs: Vital Signs Temperature 98.4 F 03/06/24 13:59 Pulse Rate 108 H 03/06/24 13:59 Respiratory Rate 18 03/06/24 13:59 Blood Pressure 135/84 03/06/24 13:59 Pulse Oximetry 99 03/06/24 13:59 Oxygen Delivery Me thod Room Air 03/06/24 13:59 MDM - Skin/Abscess/Foreign Bdy Medicial Decision Making 33-year-old female comes in today with complaints of right-sided facial swelling and tenderness. On exam we note a area of drainage to the right facial cheek but then also an area of induration and fluctuance in a separate area. Differential diagnosis includes cellulitis, abscess, periapical abscess, folliculitis. Small incision was made with a small amount of purulent drainage from the site. Patient be started on clindamycin with recommendations for follow-up in 2 to 3 days. Patient was also given some Decadron to help with swelling and inflammation. Patient reports understanding of care plan need for follow-up or return to the ER for worsening symptoms. No radiology studies performed this visit Discharge Plan Discharge Patient Disposition: Home Clinical Impression: Cellulitis and abscess of face Condition: Stable Prescriptions: New clindamycin HCl 150 mg capsule 450 mg PO Q8H 7 Days Qty: 63 0RF No Action quetiapine 50 mg Tablet Extended Release 24 Hr 100 mg PO BEDTIME 30 Days Qty: 30 1RF Discharge Orders: Discharge ED (Routine); Ordered 03/06/24 Ordered By: Tito Soto Discharge Diet: Usual diet Discharge Activity: Increase activity as tolerated Patient Instructions: Cellulitis (ED) Activity Restrictions/Additional Instructions: You have a very small abscess there that has drained. Most of the redness and induration secondary to cellulitis of the face which is similar type infection. Will be placed on clindamycin 450 mg 3 times a day for the next 7 days. You can use warm moist packs to the area to help with the induration and swelling. D rink plenty of water with medications. Follow-up with primary care for further instructions. Return to ED for shortness of breath, difficulty swallowing, or new concerns. Coding Level of Care Code ED Director Of Enterprise [employer] for [facility]
[2024-03-06] MEDS: dexamethasone 10 mg/mL INJ IM (16:19)
[2024-03-06] MEDS: clindamycin 150 mg Capsule 450 MG PO (16:19)
[2024-03-06 17:18] VITALS: BP 131/86; PULSE 83; RESP 18; O2SAT 99
== END 2024-03-06 16:44 | disposition home or self-care (01) ==
PROVIDERS: Emergency Provider Nurse Practitioner Family
DX: L03.211 Cellulitis of face (principal); L02.01 Cutaneous abscess of face; Z72.0 Tobacco use
CPT/HCPCS: 10060; 96372; 99284; J1100

== ENCOUNTER 2024-06-22 09:35 | Inpatient (IN) | payer BC, MEDICAID, SELFPAY ==
[2024-06-22] VITALS (8 sets, daily range): BP systolic 101–123; BP diastolic 67–75; PULSE 95–112; RESP 14–20; TEMP 36.8–37.2; O2SAT 97–100; BMI 29.0; BMI 29.9
--- NOTE | 2024-06-22 11:07 | ED_ITS ---
HPI - Back Pain/Injury 2 General: Chief Complaint: Back Pain/Injury Stated Complaint: middle back pain Time Seen by Provider: 06/22/24 10:53 History of Present Illness: Patient is a 33-year-old female with past medical history of IV methamphetamine use last used 06/21 presenting today with severe right flank pain, chills, and dark yellow malodorous urine. She states that it came on all of a sudden yesterday and has been constant and sharp since then, seems to be worsening. Subjective fever started around the same time. Has noticed that her urine is looked darker and has a different odor than usual. Reports lightheadedness particularly with positional changes. Has noticed tingling at the end of her urinary stream which she states is normal for her. Last bowel movement was 2 days ago, which is normal for her, denies diarrhea. Denies any skin breakdown or lesions. She denies any trauma or falls. Does not think there is any chance she could be , has had a tubal ligation, currently sexually active. She is not currently taking any medications. No history of abdominal surgeries except for her tubal ligation which was done several years ago. Here today with her significant other. Associated symptoms: Reports abdominal pain, chills, fatigue, fever(s) and nausea; Deny dysuria, urinary urgency or vomiting Related Data Previous Rx's Medication Instructions Recorded acetaminophen 325 mg tablet 650 mg (2 x 325 mg) PO Q6H PRN 06/24/24 Mild/Mod Pain Or Temp >/= 101 #30 tabs ciprofloxacin HCl 500 mg tablet 500 mg PO BID 10 days #20 tabs 06/24/24 (Cipro) pantoprazole 40 mg tablet,delayed 40 mg PO DAILY 30 days #30 tabs 06/24/24 release Allergies Allergy/AdvReac Type Severity Reaction Status Date / Time bee venom protein (honey bee) Allergy Unknown Verified 03/06/24 14:04 chocolate flavor AdvReac Rash Verified 03/06/24 14:04 Review of Systems 2 Const: Reports: fever(s), chills, change in appetite, fatigue and malaise Card: Denies: chest pain Resp: Reports: pain on inspiration; Denies: dyspnea GI: Reports: abdominal pain and nausea; Denies: vomiting or diarrhea : Denies: dysuria, urinary frequency or urinary urgency Musc: Reports: back pain; Denies: neck pain Skin/Breast: Denies: rash Neuro: Reports: dizziness [facility] ED 2 PFSH: Medical History Asthma -Diagnosed as a child-uses it intermittently-last use was in spring 2019. Bipolar 1 disorder Dx in her early 20s seizures-was on medication in the past but has not seen a therapist or been on medication since at least 2014. Surgical History S/P eye surgery 1997--Performed at [facility] [place] in [place], [place] --- Eye surgery done after trauma to eye S/P tubal ligation 08/27/2018--Bilateral tubal ligation @ [place], [place]. Dr. Montano. Family History Family/Other Seizure uncle and cousin Mother Asthma Sister Asthma Father Hypertension Hyperlipidemia Heart disease Diabetes Brother Hypertension Grandmother Hypertension paternal Heart disease paternal Grandfather Hypertension paternal Denies family history of Colon cancer Ovarian cancer Uterine cancer Thyroid disease Stroke Social History Smoking and tobacco/nicotine status: current every day tobacco/nicotine user Alcohol intake: unknown Substance/Drug Use: former Additional social history: - Tobacco Use: Started smoking at age 17 and has smoked up to 1/2 pack per day since then. Currently smokes 2-3 cigarettes daily. Drug Use: -Has used marijuana in the past- -Has also used methamphetamines in the p ast and states she stopped using methamphetamines when she found out she was in 2013. Currently using methamphetamines intravenously again, last use 06/21. 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 Female Reproductive History: Other reproductive history: 5 pregnancies, status post tubal ligatio n Physical Exam 2 Const: ORIENTATION/CONSCIOUSNESS: Yes awake, Yes oriented to person, Yes oriented to place and Yes oriented to time HENMT: COMMON NORMALS: normocephalic, atraumatic and hearing grossly normal bilaterally HEAD & SCALP: normocephalic and atraumatic Chest: CHEST: Yes Symmetrical chest wall rise Resp: COMMON NORMALS: No retractions and clear to auscultation bilaterally EFFORT & INSPECTION: Yes able to speak in complete sentences, Yes symmetric chest movement and Yes tachypneic AUSCULTATION: clear to auscultation bilaterally Cardio: COMMON NORMALS: regular rhythm and No murmurs present (Cardio) R ATE: tachycardic RHYTHM: regular rhythm GI: COMMON NORMALS: Soft to palpation and No hepatosplenomegaly present A USCULTATION: Yes normoactive bowel sounds PALPATION: Yes Soft to palpation, No Tenderness to palpation present (GI), No Guarding due to palpation present (GI) and Yes No hepatosplenomegaly present OTHER: Tenderness to deep palpation over the right upper and lower quadrants : BLADDER/KIDNEY EXAM: Yes CVA tenderness on the right Back/Pelvis: GENERAL BACK: Yes CVA tenderness CVA tenderness: right Extremity: COMMON NORMALS: normal to inspection, capillary refill normal, no clubbing, cyanosis or edema, no calf tenderness and no pedal edema Neuro: SENSORIUM/ORIENTATION: Yes oriented to person, Yes oriented to place and Yes oriented to time Skin: COMMON NORMALS: no rashes or lesions noted GENERAL SKIN EXAM: no rashes or lesions noted Course 2 Vital Signs: Vital signs: Vital Signs Temperature 98.6 F 06/24/24 12:39 Pulse Rate 90 06/24/24 12:39 Respiratory Rate 16 06/24/24 12:39 Blood Pressure 103/65 06/24/24 12:39 Pulse Oximetry 99 06/24/24 12:39 Oxygen Delivery Me thod Room Air 06/24/24 12:00 MDM - Back Pain/Injury Medical Decision Making Labs and imaging reviewed. Acute appendicitis no obstruction. Will admit discussed with hospitalist orders written. Cultures have been done initiated antibiotics Medical Records I reviewed the patient's medical records. Labs I reviewed the patient's lab results. 06/24/24 03:10 06/24/24 03:10 Radiology Impressions Abdomen/Pelvis CT 06/22/24 11:30 IMPRESSION: 1. Mildly enlarged edematous RIGHT kidney with perinephric and proximal periureteral stranding. Small amount of fluid along the course of the RIGHT ureter over the psoas muscle. No stone or obstruction of the kidney. Suspect changes are related to acute pyelonephritis. 2. No obstruction of the LEFT kidney. Nonobstructing 3 mm calcification lower pole. 3. Moderate constipation. 4. No free fluid or ascites. Laboratory Results WBC 15.66 10^3/uL (3.29-11.43) H 06/22/24 10:50 RBC 4.54 10^6/uL (3.85-5.65) 06/22/24 10:50 Hgb 12.60 g/dL (11.27-16.99) 06/22/24 10:50 Hct 39.5 % (36-47) 06/22/24 10:50 MCV 87.0 fl (85-98) 06/22/24 10:50 MCH 27.8 pg (27-33) 06/22/24 10:50 MCHC 31.9 g/dL (30-55) 06/22/24 10:50 RDW 14.5 % (12.1-15.1) 06/22/24 10:50 Plt Count 253 10^3/cmm (157-399) 06/22/24 10:50 MPV 9.2 fL (7.4-10.4) 06/22/24 10:50 Neut % (Auto) 86.5 % 06/22/24 10:50 Lymph % (Auto) 7.0 % 06/22/24 10:50 [place] % (Auto) 5.8 % 06/22/24 10:50 Eos % (Auto) 0.1 % 06/22/24 10:50 Baso % (Auto) 0.3 % 06/22/24 10:50 Neut # (Auto) 13.53 10^3/uL (1.8-7.7) H 06/22/24 10:50 Lymph # (Auto) 1.1 10^3/uL (0.8-4.8) 06/22/24 10:50 [place] # (Auto) 0.9 10^3/uL (0.2-0.9) 06/22/24 10:50 Eos # (Auto) 0.0 10^3/uL (0.0-0.8) 06/22/24 10:50 Baso # (Auto) 0.1 10^3/uL (0.0-0.1) 06/22/24 10:50 Nucleated RBC % (auto) 0 % 06/22/24 10:50 Nucleated RBCs # 0.0 /100WBC 06/22/24 10:50 Sodium 135 mmol/L (136-145) L 06/22/24 10:50 Potassium 3.8 mmol/L (3.5-5.1) 06/22/24 10:50 Chloride 99 mmol/L (98-107) 06/22/24 10:50 Carbon Dioxide 26 mmol/L (22-29) 06/22/24 10:50 Anion Gap 13.8 (5-19) 06/22/24 10:50 BUN 8 mg/dL (6-20) 06/22/24 10:50 Creatinine 0.8 mg/dL (0.5-0.9) 06/22/24 10:50 GFR Calculation 82.1 mL/min (90-130) L 06/22/24 10:50 Glucose 142 mg/dL (65-115) H 06/22/24 10:50 Calculated Osmolality 281 mOsm/kg (285-295) L 06/22/24 10:50 Lactic Acid 1.1 mmol/L (0.5-2.2) 06/22/24 10:50 Calcium 9.4 mg/dL (8.5-10.5) 06/22/24 10:50 Total Bilirubin 0.6 mg/dL (0.15-1.2) 06/22/24 10:50 AST 14 U/L (0-32) 06/22/24 10:50 ALT 14 U/L (0-33) 06/22/24 10:50 Alkaline Phosphatase 82 U/L (35-105) 06/22/24 10:50 C-Reactive Protein 180.3 mg/L (0.0-4.9) H 06/22/24 10:50 Total Protein 7.5 g/dL (6.6-8.7) 06/22/24 10:50 Albumin 4.0 g/dL (3.5-5.2) 06/22/24 10:50 Globulin 3.5 g/dL (1.3-4.6) 06/22/24 10:50 Lipase 20 U/L (13-60) 06/22/24 10:50 HCG, Qual Negative (Negative) 06/22/24 10:50 Urine Color Yellow (Yellow) 06/22/24 11:35 Urine Appearance Cloudy (CLEAR) A 06/22/24 11:35 Urine pH 5.5 (5-7) 06/22/24 11:35 Ur Specific [place] 1.020 (1.005-1.030) 06/22/24 11:35 Urine Protein 2+ (Negative) A 06/22/24 11:35 Urine Glucose (UA) Negative (Normal) 06/22/24 11:35 Urine Ketones Negative (Negative) 06/22/24 11:35 Urine Blood 2+ (Negative) A 06/22/24 11:35 Urine Nitrate Positive (Negative) A 06/22/24 11:35 Urine Bilirubin Negative (Negative) 06/22/24 11:35 Urine Urobilinogen 1.0 mg/dL (Negative) 06/22/24 11:35 Ur Leukocyte Esterase 2+ (Negative) A 06/22/24 11:35 Urine RBC 3-5 /hpf (0-2) 06/22/24 11:35 Urine WBC >100 /hpf (0-5) H 06/22/24 11:35 Ur Squamous Epith Cells 11-20 /hpf (0-5) H 06/22/24 11:35 Amorphous Sediment Not Reportable 06/22/24 11:35 Urine Bacteria 4+ /hpf (NONE) H 06/22/24 11:35 Hyaline Casts 6.61 /lpf 06/22/24 11:35 Urine Opiates Screen Negative ng/mL (Negative) 06/22/24 11:35 Ur Barbiturates Screen Negative ng/mL (Negative) 06/22/24 11:35 Ur Phencyclidine Scrn Negative ng/mL (Negative) 06/22/24 11:35 Ur Amphetamines Screen Positive ng/mL (Negative) H 06/22/24 11:35 U Benzodiazepines Scrn Negative ng/mL (Negative) 06/22/24 11:35 Urine Cocaine Screen Negative ng/mL (Negative) 06/22/24 11:35 U Marijuana (THC) Screen Negative ng/mL (Negative) 06/22/24 11:35 C. trachomatis (PCR) Not detected 06/22/24 11:35 N. gonorrhoeae (PCR) Not detected 06/22/24 11:35 All radiology interpretation(s) finalized by discharge Discharge Plan Discharge Patient Disposition: Admitted As Inpatient Admit Provider: Naomie Potts Clinical Impression: Pyelonephritis, Methamphetamine abuse Condition: Stable Coding Level of Care Code ED Mason[employer] Inspector for Rivas Hart
[2024-06-22 11:11] LABS: Basophils # 0.1 10^3/uL (0.0-0.1); Basophils % 0.3 %; Eosinophils % 0.1 %; Hematocrit 39.5 % (36-47); Lymphocytes # 1.1 10^3/uL (0.8-4.8); Mean Corpuscular HGB Conc 31.9 g/dL (30-55); Mean Corpuscular Hemoglobin 27.8 pg (27-33); Mean Platelet Volume 9.2 fL (7.4-10.4); Monocytes # 0.9 10^3/uL (0.2-0.9); Monocytes % 5.8 %; Neutrophils # 13.53 10^3/uL (1.8-7.7); Neutrophils % 86.5 %; Nucleated Red Blood Cells % 0 %; Platelet Count 253 10^3/cmm (157-399); Red Blood Count 4.54 10^6/uL (3.85-5.65); Red Cell Distribution Width 14.5 % (12.1-15.1); White Blood Count 15.66 10^3/uL (3.29-11.43)
[2024-06-22 11:24] LABS: HCG, Serum Qual Negative (Negative)
[2024-06-22 11:27] LABS: Alanine Aminotransferase 14 U/L (0-33); Alkaline Phosphatase 82 U/L (35-105); Anion Gap 13.8 (5-19); Aspartate Amino Transferase 14 U/L (0-32); Blood Urea Nitrogen 8 mg/dL (6-20); Calcium 9.4 mg/dL (8.5-10.5); Carbon Dioxide 26 mmol/L (22-29); Chloride 99 mmol/L (98-107); Creatinine Clr Calc Pharmacy 95.7244; Globulin 3.5 g/dL (1.3-4.6); Glomerular Filtration Rate 82.1 mL/min (90-130); Glucose 142 mg/dL (65-115); Lipase 20 U/L (13-60); Osmolality Calculated 281 mOsm/kg (285-295); Potassium 3.8 mmol/L (3.5-5.1); Sodium 135 mmol/L (136-145); Total Bilirubin 0.6 mg/dL (0.15-1.2); Total Protein 7.5 g/dL (6.6-8.7)
[2024-06-22 11:30] LABS: C Reactive Protein 180.3 mg/L (0.0-4.9)
--- NOTE | 2024-06-22 11:30 | CT_ITS ---
WS: [id number] CT ABDOMEN AND PELVIS NONCONTRAST HISTORY: flank pain, LEFT TECHNIQUE: Imaging performed through the abdomen and pelvis. Coronal and sagittal reformats are submi tted. All CT scans at [facility] use at least one of these dose optimization techniques: auto mated exposure control; mA and/or kV adjustment per patient size (includes targeted exams where dose is matched to clinical indication); or iterative reconstruction. DLP: 499.84 mGy.cm COMPARISON: 08/17/2010 Lower thorax: Lung bases are clear. Visualized heart is normal. No hiatal hernia. Liver: Normal size liver. No mass or bile duct dilatation. Gallbladder: Normal gallbladder. No pericholecystic fluid or cholelithiasis. No gallbladder wall thic kening. Pancreas: Normal size and attenuation. Normal pancreatic duct. No pancreatitis or mass. Spleen: Normal. Adrenal glands: Normal. No mass. Right kidney: Mild enlargement with renal edema and perinephric stranding. Mild stranding continues a long the proximal RIGHT ureter to the mid psoas level. No radiopaque stones are identified within the kidney or the ureter. There is a small amount of fluid along the RIGHT psoas muscle associated with the ureter. Left kidney: Normal size kidney. Nonobstructing 3 mm calcification lower pole. Aorta: Normal abdominal aorta, no aneurysm or atherosclerosis. No free fluid, intraperitoneal air or significant lymphadenopathy. GI tract: No obstruction. Moderate fecal retention throughout the colon greatest within the cecum. No appendicitis. Abdominal wall: Negative. No hernia. Pelvis: Anteverted uterus. No free fluid or adenopathy. Osseous structures: Unremarkable. CT/CT kidney stone [id number] IMPRESSION: 1. Mildly enlarged edematous RIGHT kidney with perinephric and proximal periur eteral stranding. Small amount of fluid along the course of the RIGHT ureter ov er the psoas muscle. No stone or obstruction of the kidney. Suspect changes are related to acute pyelonephritis. 2. No obstruction of the LEFT kidney. Nonobstructing 3 mm calcification lower pole. 3. Moderate constipation. 4. No free fluid or ascites.
[2024-06-22] MEDS: morphine 4 mg/mL SDV 1 mL IVP (11:41)
[2024-06-22] MEDS: ondansetron 2 mg/ML SDV 2 mL 4 MG IVP (11:41)
[2024-06-22] MEDS: ketorolac 30 mg/mL INJ IVP (11:42)
[2024-06-22] MEDS: piperacillin-tazobactam 3.375 GM in sodium chloride 0.9% (plus) 50 ML IV (11:43)
[2024-06-22] MEDS: sodium chloride 0.9% 1,000 ML 999 ML IV (11:44)
[2024-06-22 11:58] LABS: Bilirubin Urine Negative (Negative); Blood Urine 2+ (Negative); Glucose Urine UA Negative (Normal); Ketones Urine Negative (Negative); Leukocyte Esterase Urine 2+ (Negative); Nitrate Urine Positive (Negative); Protein Urine 2+ (Negative); Urine Appearance Cloudy (CLEAR); Urine Color Yellow (Yellow); pH Urine 5.5 (5-7)
[2024-06-22 12:00] LABS: Add Urine Microscopic? YES; Bacteria Urine 4+ /hpf; Hyaline Casts Urine 6.61 /lpf; WBC Urine >100 /hpf (0-5)
[2024-06-22 12:01] LABS: Lactic Sepsis W/Reflex 1.1 mmol/L (0.5-2.2)
[2024-06-22 12:01] LABS: Add Urine Culture? Yes
--- NOTE | 2024-06-22 12:35 | PC.NURSE ---
IV Vancomycin delayed d/t Zosyn infusing
[2024-06-22] MEDS: VANCOMYCIN ADD-Vantage 1,000 MG in 0.9% NaCl ADD-Vantage 250 ML 250 MG IV (12:41)
--- NOTE | 2024-06-22 15:40 | P.HP_ITS ---
Providers/Chief Complaint 2 Admitting Physician: Naomie Potts MD Chief Complaint: middle back pain History of Present Illness Faviola Rutledge is a 33 year old female Who presents to the emergency room today with 1 week of foul-smelling urine, burning micturition, progressed over the last 2 days to extensive right flank pain. She has been unable to keep any food down. Has been having nausea and vomiting. CT in the ER shows evidence of right-sided pyelonephritis. No obstructive urinary calculus noted. Past history is notable for history of IV methamphetamine use. Blood cultures have been taken and currently pending. Review of Systems 2 General: Reports: 10 or more systems reviewed and unremarkable except in HPI and below Const: Denies: fever(s), chills or body aches Eyes: Denies: change in vision, blurry vision or photophobia ENMT: Reports: hoarseness; Denies: throat pain, enlarged tonsils, odynophagia or nasal congestion Card: Denies: chest pain, palpitations, irregular heart rhythm, edema, swelling of feet/ankles, lightheadedness, pre-syncope, dyspnea on exertion or orthopnea Resp: Denies: dyspnea, productive cough, non-productive cough, wheezing, stridor, pain on inspiration, change in phlegm color, hemoptysis or chest congestion GI: Denies: abdominal pain, nausea, vomiting, hematemesis, coffee ground emesis, dysphagia, heartburn, diarrhea, constipation, GI cramping, change in stool character, hematochezia or melena : Denies: flank pain, difficulty voiding, dysuria, urinary frequency, urinary urgency, urinary hesitancy or hematuria Musc: Denies: neck pain, back pain, extremity pain, joint swelling, joint warmth or deformity Neuro: Denies: headache(s), numbness in extremities, weakness in extremities, sensory changes, difficulty walking, frequent falls, dizziness, vertigo, behavioral changes, Slurred speech present or seizure-like activity Psych: Denies: anxiety, depression, suicidal ideation or homicidal ideation Endo: Denies: polyuria, polydipsia, tired all the time, cold intolerance or hot flashes Gregory/Lymph: Denies: easy bruising or easy bleeding Medications/Allergies Home Medications Medication Instructions Recorded Confirmed Last Taken Type No Known Home Medications 06/22/24 06/22/24 Unknown History Allergies Allergy/AdvReac Type Severity Reaction Status Date / Time bee venom protein (honey bee) Allergy Unknown Verified 03/06/24 14:04 chocolate flavor AdvReac Rash Verified 03/06/24 14:04 PFSH Acute 2 PFSH: Medical History Asthma -Diagnosed as a child-uses it intermittently-last use was in spring 2019. Bipolar 1 disorder Dx in her early 20s seizures-was on medication in the past but has not seen a therapist or been on medication since at least 2014. Surgical History S/P eye surgery 1997--Performed at [facility] [place] in [place], [place] --- Eye surgery done after trauma to eye S/P tubal ligation 08/27/2018--Bilateral tubal ligation @ [place], [place]. Dr. Montano. Family History Family/Other Seizure uncle and cousin Mother Asthma Sister Asthma Father Hypertension Hyperlipidemia Heart disease Diabetes Brother Hypertension Grandmother Hypertension paternal Heart disease paternal Grandfather Hypertension paternal Denies family history of Colon cancer Ovarian cancer Uterine cancer Thyroid disease Stroke Social History Smoking and tobacco/nicotine status: current every day tobacco/nicotine user Alcohol intake: unknown Substance/Drug Use: former Additional social history: - Tobacco Use: Started smoking at age 17 and has smoked up to 1/2 pack per day since then. Currently smokes 2-3 cigarettes daily. Drug Use: -Has used marijuana in the past- -Has also used methamphetamines in the p ast and states she stopped using methamphetamines when she found out she was in 2013. Currently using methamphetamines intravenously again, last use 06/21. 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 Vitals/I&O/Wt Last Vital Signs Temp 98.2 F 06/22/24 09:39 Pulse 100 06/22/24 14:05 Resp 18 06/22/24 11:41 BP 104/70 06/22/24 14:05 Pulse Ox 100 06/22/24 14:05 O2 Del Method Room Air 06/22/24 11:47 06/22/24 06/22/24 06/22/24 06:59 14:59 22:59 Intake Total 1300 / 1300 Balance 1300 / 1300 Weight last 48 hrs Weight 74.389 kg Physical Exam 2 Narrative: General: No acute distress, AO x3 HEENT: PERRLA, pupils bilaterally equal and reactive, pallors not present Chest: Normal vesicular breath sounds, no added sounds, equal good air entry bilaterally CVS: S1-S2 regular, no murmurs, no tachycardia, no gallops, no rubs Abdomen: Soft, nontender, no organomegaly, bowel sounds present; right flank pain Neuro: No focal deficits, no facial deformity, AO x3, power 5/5 in all limbs Data 06/22/24 10:50 06/22/24 10:50 Micro: Microbiology 06/22/24 11:37 Blood Culture - Preliminary Blood SPECIMEN COLLECTED 06/22/24 11:35 Blood Culture - Preliminary Blood SPECIMEN COLLECTED Other data: Radiology Impressions Abdomen/Pelvis CT 06/22/24 11:30 IMPRESSION: 1. Mildly enlarged edematous RIGHT kidney with perinephric and proximal periureteral stranding. Small amount of fluid along the course of the RIGHT ureter over the psoas muscle. No stone or obstruction of the kidney. Suspect changes are related to acute pyelonephritis. 2. No obstruction of the LEFT kidney. Nonobstructing 3 mm calcification lower pole. 3. Moderate constipation. 4. No free fluid or ascites. Laboratory Results WBC 15.66 10^3/uL (3.29-11.43) H 06/22/24 10:50 RBC 4.54 10^6/uL (3.85-5.65) 06/22/24 10:50 Hgb 12.60 g/dL (11.27-16.99) 06/22/24 10:50 Hct 39.5 % (36-47) 06/22/24 10:50 MCV 87.0 fl (85-98) 06/22/24 10:50 MCH 27.8 pg (27-33) 06/22/24 10:50 MCHC 31.9 g/dL (30-55) 06/22/24 10:50 RDW 14.5 % (12.1-15.1) 06/22/24 10:50 Plt Count 253 10^3/cmm (157-399) 06/22/24 10:50 MPV 9.2 fL (7.4-10.4) 06/22/24 10:50 Neut % (Auto) 86.5 % 06/22/24 10:50 Lymph % (Auto) 7.0 % 06/22/24 10:50 [place] % (Auto) 5.8 % 06/22/24 10:50 Eos % (Auto) 0.1 % 06/22/24 10:50 Baso % (Auto) 0.3 % 06/22/24 10:50 Neut # (Auto) 13.53 10^3/uL (1.8-7.7) H 06/22/24 10:50 Lymph # (Auto) 1.1 10^3/uL (0.8-4.8) 06/22/24 10:50 [place] # (Auto) 0.9 10^3/uL (0.2-0.9) 06/22/24 10:50 Eos # (Auto) 0.0 10^3/uL (0.0-0.8) 06/22/24 10:50 Baso # (Auto) 0.1 10^3/uL (0.0-0.1) 06/22/24 10:50 Nucleated RBC % (auto) 0 % 06/22/24 10:50 Nucleated RBCs # 0.0 /100WBC 06/22/24 10:50 Sodium 135 mmol/L (136-145) L 06/22/24 10:50 Potassium 3.8 mmol/L (3.5-5.1) 06/22/24 10:50 Chloride 99 mmol/L (98-107) 06/22/24 10:50 Carbon Dioxide 26 mmol/L (22-29) 06/22/24 10:50 Anion Gap 13.8 (5-19) 06/22/24 10:50 BUN 8 mg/dL (6-20) 06/22/24 10:50 Creatinine 0.8 mg/dL (0.5-0.9) 06/22/24 10:50 GFR Calculation 82.1 mL/min (90-130) L 06/22/24 10:50 Glucose 142 mg/dL (65-115) H 06/22/24 10:50 Calculated Osmolality 281 mOsm/kg (285-295) L 06/22/24 10:50 Lactic Acid 1.1 mmol/L (0.5-2.2) 06/22/24 10:50 Calcium 9.4 mg/dL (8.5-10.5) 06/22/24 10:50 Total Bilirubin 0.6 mg/dL (0.15-1.2) 06/22/24 10:50 AST 14 U/L (0-32) 06/22/24 10:50 ALT 14 U/L (0-33) 06/22/24 10:50 Alkaline Phosphatase 82 U/L (35-105) 06/22/24 10:50 C-Reactive Protein 180.3 mg/L (0.0-4.9) H 06/22/24 10:50 Total Protein 7.5 g/dL (6.6-8.7) 06/22/24 10:50 Albumin 4.0 g/dL (3.5-5.2) 06/22/24 10:50 Globulin 3.5 g/dL (1.3-4.6) 06/22/24 10:50 Lipase 20 U/L (13-60) 06/22/24 10:50 HCG, Qual Negative (Negative) 06/22/24 10:50 Urine Color Yellow (Yellow) 06/22/24 11:35 Urine Appearance Cloudy (CLEAR) A 06/22/24 11:35 Urine pH 5.5 (5-7) 06/22/24 11:35 Ur Specific [place] 1.020 (1.005-1.030) 06/22/24 11:35 Urine Protein 2+ (Negative) A 06/22/24 11:35 Urine Glucose (UA) Negative (Normal) 06/22/24 11:35 Urine Ketones Negative (Negative) 06/22/24 11:35 Urine Blood 2+ (Negative) A 06/22/24 11:35 Urine Nitrate Positive (Negative) A 06/22/24 11:35 Urine Bilirubin Negative (Negative) 06/22/24 11:35 Urine Urobilinogen 1.0 mg/dL (Negative) 06/22/24 11:35 Ur Leukocyte Esterase 2+ (Negative) A 06/22/24 11:35 Urine RBC 3-5 /hpf (0-2) 06/22/24 11:35 Urine WBC >100 /hpf (0-5) H 06/22/24 11:35 Ur Squamous Epith Cells 11-20 /hpf (0-5) H 06/22/24 11:35 Amorphous Sediment Not Reportable 06/22/24 11:35 Urine Bacteria 4+ /hpf (NONE) H 06/22/24 11:35 Hyaline Casts 6.61 /lpf 06/22/24 11:35 A&P Assessment and plan (1) Pyelonephritis: (2) Methamphetamine abuse: (3) Screen for STD (sexually transmitted disease): Plan 33-year-old lady presenting today with chief complaints of burning micturition, foul-smelling urine and worsening back pain with nausea vomiting over the past [address] evidence of right-sided pyelonephritis. No obvious obstruction noted. UA positive with leukocyte esterase, elevated WBCs reflecting UTI. Urine and blood cultures taken in the emergency room, currently pending. Start empiric treatment with Cefepime 2g iv q12h Patient unable to tolerate po intake at this time, therefore prefer iv treatment over oral HIV , syphilis, hep b and C screen given h/o IVDU check urine GC/ chlamydia Attestations 2 Medical Necessity Statement*: > 2 midnight stay for pyelonpehirtis Coding Level of Care Code Acute Code for [facility] Fwd Diagnoses Pyelonephritis N12 Methamphetamine abuse F15.10 Screen for STD (sexually transmitted disease) Z11.3
[2024-06-22 17:16] LABS: Amphetamines Screen Urine Positive (Negative); Barbiturates Screen Urine Negative (Negative); Benzodiazepines Screen Urine Negative (Negative); Cocaine Screen Urine Negative (Negative); Opiate Screen Urine Negative (Negative); PCP Screen Urine Negative (Negative); THC Screen Urine Negative (Negative)
[2024-06-22] MEDS: cefepime 2,000 mg SDV 2000 MG IVP (17:38)
[2024-06-22] MEDS: morphine 4 mg/mL SDV 1 mL 2 MG IVP (17:39)
--- NOTE | 2024-06-22 18:14 | PC.NURSE ---
Pt arrived to floor around 1600. She has stayed curled up in the bed with her eyes closed. Morphine admin once for pain. She has not urinated yet.
[2024-06-22 18:37] LABS: Chlamydia Trachomatis NOT DETECTED; Neisseria Gonorrhea NOT DETECTED
[2024-06-22] MEDS: acetaminophen 325 mg Tablet 650 MG PO (23:47)
[2024-06-23] VITALS (8 sets, daily range): BP systolic 92–116; BP diastolic 56–74; PULSE 57–104; RESP 14–20; TEMP 36.6–37.5; O2SAT 96–100
[2024-06-23] MEDS: cefepime 2,000 mg SDV 2000 MG IVP ×2 (04:52→17:09)
[2024-06-23 06:17] LABS: Alanine Aminotransferase 13 U/L (0-33); Alkaline Phosphatase 74 U/L (35-105); Anion Gap 14.5 (5-19); Aspartate Amino Transferase 13 U/L (0-32); Blood Urea Nitrogen 8 mg/dL (6-20); Calcium 8.1 mg/dL (8.5-10.5); Carbon Dioxide 23 mmol/L (22-29); Chloride 103 mmol/L (98-107); Globulin 2.8 g/dL (1.3-4.6); Glomerular Filtration Rate 82.1 mL/min (90-130); Glucose 122 mg/dL (65-115); Osmolality Calculated 284 mOsm/kg (285-295); Potassium 3.5 mmol/L (3.5-5.1); Sodium 137 mmol/L (136-145); Total Bilirubin 0.5 mg/dL (0.15-1.2); Total Protein 5.8 g/dL (6.6-8.7)
[2024-06-23 06:24] LABS: HIV 1 & 2 Antibody Non-Reactive (Non-Reactiv); HIV 1 & 2 Antigen Non-Reactive (Non-Reactiv)
[2024-06-23 06:28] LABS: Hepatitis A Antibody IgM Non-Reactive (Nonreactive); Hepatitis B Core AB, Total Non-Reactive (Nonreactive); Hepatitis B Surface Antigen Non-Reactive (Nonreactive); Hepatitis C Virus Antibody Non-Reactive (Nonreactive)
[2024-06-23 06:46] LABS: Hepatitis B Surface AB > 1000.0 (11.5-1000)
[2024-06-23 08:01] LABS: Basophils % 0.3 %; Eosinophils # 0.1 10^3/uL (0.0-0.8); Eosinophils % 0.5 %; Hematocrit 36.6 % (36-47); Lymphocytes # 1.2 10^3/uL (0.8-4.8); Mean Corpuscular HGB Conc 31.4 g/dL (30-55); Mean Corpuscular Hemoglobin 27.8 pg (27-33); Mean Corpuscular Volume 88.4 fl (85-98); Monocytes # 1.1 10^3/uL (0.2-0.9); Monocytes % 8.5 %; Neutrophils # 9.99 10^3/uL (1.8-7.7); Neutrophils % 80.4 %; Nucleated Red Blood Cells % 0 %; Platelet Count 200 10^3/cmm (157-399); Red Blood Count 4.14 10^6/uL (3.85-5.65); Red Cell Distribution Width 14.4 % (12.1-15.1); White Blood Count 12.43 10^3/uL (3.29-11.43)
[2024-06-23] MEDS: pantoprazole DR 40 mg Tablet PO (08:01)
[2024-06-23] MEDS: ketorolac 30 mg/mL INJ 15 MG IVP ×2 (08:01→17:09)
[2024-06-23 08:49] LABS: Estmated Average Glucose 97
[2024-06-23] MEDS: ondansetron 2 mg/ML SDV 2 mL 4 MG IVP (12:32)
[2024-06-23] MEDS: morphine 4 mg/mL SDV 1 mL 2 MG IVP ×2 (12:32→20:27)
--- NOTE | 2024-06-23 15:37 | P.PN_ITS ---
Subjective 2 Subjective: Continues to have pain though reports this is improved compared to yesterday. Tmax 99.5 today. Able to keep down food and oral intake today. Urine culture showing gram-negative rods. Vitals/I&O/Wt Last Vital Signs Temp 99.5 F 06/23/24 15:27 Pulse 102 H 06/23/24 15:27 Resp 14 06/23/24 15:27 BP 110/70 06/23/24 15:27 Pulse Ox 96 06/23/24 15:27 O2 Del Method Room Air 06/23/24 15:27 06/23/24 06/23/24 06/23/24 06:59 14:59 22:59 Intake Total 360 / 2020 378 / 378 Output Total 600 / 600 Balance -240 / 1420 378 / 378 Weight last 48 hrs Weight 76.204 kg Weight 76.521 kg Weight 74.389 kg Physical Exam 2 Narrative: General: No acute distress, AO x3 HEENT: PERRLA, pupils bilaterally equal and reactive, pallors not present Chest: Normal vesicular breath sounds, no added sounds, equal good air entry bilaterally CVS: S1-S2 regular, no murmurs, no tachycardia, no gallops, no rubs Abdomen: Soft, nontender, no organomegaly, bowel sounds present; right flank pain Neuro: No focal deficits, no facial deformity, AO x3, power 5/5 in all limbs Data 06/23/24 07:49 06/23/24 05:31 Micro: Microbiology 06/22/24 11:35 Urine Culture - Preliminary Urine,Clean Catch Gram Negative Rods 06/22/24 11:37 Blood Culture - Preliminary Blood SPECIMEN COLLECTED 06/22/24 11:35 Blood Culture - Preliminary Blood SPECIMEN COLLECTED A&P Assessment and plan (1) Pyelonephritis: (2) Methamphetamine abuse: (3) Screen for STD (sexually transmitted disease): Plan 33-year-old lady presenting today with chief complaints of burning micturition, foul-smelling urine and worsening back pain with nausea vomiting over the past [address] evidence of right-sided pyelonephritis. No obvious obstruction noted. UA positive with leukocyte esterase, elevated WBCs reflecting UTI. Urine and blood cultures taken in the emergency room, currently pending. Start empiric treatment with Cefepime 2g iv q12h Patient unable to tolerate po intake at this time, therefore prefer iv treatment over oral HIV , syphilis, hep b and C screen given h/o IVDU check urine GC/ chlamydia June 23, 2024 Leukocytosis improving. Right flank pain improving. Able to tolerate oral intake today. Urine culture showing gram-negative rods. Will follow-up on final cultures and then narrow antibiotics accordingly. For now continue cefepime empirically. Discharge plan to be dependent on pending blood and urine culture results Attestations 2 Medical Necessity Statement*: Pending culture results Coding Level of Care Code Acute Code for Chg Fwd Moderate MDM includes number and complexity of problems actively addressed during encounter, amount and/or complexity of data reviewed/ordered and described risk of complication, morbidity or mortality of management as documented Diagnoses Pyelonephritis N12 Methamphetamine abuse F15.10 Screen for STD (sexually transmitted disease) Z11.3
[2024-06-23] MEDS: acetaminophen 325 mg Tablet 650 MG PO (21:11)
[2024-06-24] VITALS: BP 95/59; PULSE 78; RESP 12; TEMP 36.7; O2SAT 97
[2024-06-24 03:45] LABS: Basophils % 0.3 %; Eosinophils # 0.1 10^3/uL (0.0-0.8); Eosinophils % 1.5 %; Hematocrit 32.4 % (36-47); Lymphocytes # 2.3 10^3/uL (0.8-4.8); Lymphocytes % 24.1 %; Mean Corpuscular HGB Conc 31.5 g/dL (30-55); Mean Corpuscular Hemoglobin 27.4 pg (27-33); Mean Corpuscular Volume 87.1 fl (85-98); Mean Platelet Volume 9.5 fL (7.4-10.4); Monocytes # 0.9 10^3/uL (0.2-0.9); Monocytes % 9.7 %; Neutrophils # 6.08 10^3/uL (1.8-7.7); Neutrophils % 64.1 %; Nucleated Red Blood Cells % 0 %; Platelet Count 212 10^3/cmm (157-399); Red Blood Count 3.72 10^6/uL (3.85-5.65); Red Cell Distribution Width 14.1 % (12.1-15.1); White Blood Count 9.49 10^3/uL (3.29-11.43)
[2024-06-24 04:00] VITALS: BP 99/65; PULSE 86; RESP 16; TEMP 36.4; O2SAT 97
[2024-06-24 04:04] LABS: Alanine Aminotransferase 15 U/L (0-33); Alkaline Phosphatase 70 U/L (35-105); Anion Gap 11.6 (5-19); Aspartate Amino Transferase 11 U/L (0-32); Blood Urea Nitrogen 13 mg/dL (6-20); Calcium 8.3 mg/dL (8.5-10.5); Carbon Dioxide 27 mmol/L (22-29); Chloride 101 mmol/L (98-107); Globulin 2.6 g/dL (1.3-4.6); Glomerular Filtration Rate 82.1 mL/min (90-130); Glucose 117 mg/dL (65-115); Osmolality Calculated 283 mOsm/kg (285-295); Potassium 3.6 mmol/L (3.5-5.1); Sodium 136 mmol/L (136-145); Total Bilirubin 0.2 mg/dL (0.15-1.2); Total Protein 5.6 g/dL (6.6-8.7)
[2024-06-24] MEDS: cefepime 2,000 mg SDV 2000 MG IVP (05:09)
[2024-06-24 06:00] VITALS: BMI 29.7
[2024-06-24 08:00] VITALS: BP 103/65; PULSE 90; RESP 14; TEMP 37; O2SAT 99
[2024-06-24] MEDS: ketorolac 30 mg/mL INJ 15 MG IVP (09:32)
[2024-06-24] MEDS: pantoprazole DR 40 mg Tablet PO (09:34)
[2024-06-24 11:25] LABS: RPR w(Moniotor) w/REFL Titer NON-REACTIVE (NON-REACTIVE)
[2024-06-24 12:00] VITALS: BP 117/78; PULSE 99; RESP 16; TEMP 37.1; O2SAT 97
[2024-06-24 12:39] VITALS: BP 103/65; PULSE 90; RESP 16; TEMP 37; O2SAT 99
--- NOTE | 2024-06-24 23:06 | PM.DCS ---
Discharge Providers Date of Admission: 06/22/24 15:27 Date of Discharge: June 24, 2024 Attending Provider at Admission: Naomie Potts MD Attending Provider at Discharge: Naomie Potts MD Diagnoses at Discharge Discharge Diagnosis (1) Pyelonephritis: Status: Acute (2) Methamphetamine abuse: Status: Acute (3) Screen for STD (sexually transmitted disease): Status: Acute Reason for Visit Reason for Visit: middle back pain Hospital Course Hospital Course 33 year old lady presented to the hospital with dysuria, fever, chills, right flank pain, vomiting and inability to tolerate po intake. CT showed pyelonephritis. CLinical findings of the same. No obstruction noted on CT. Patient admitted and received treatment with iv cefepime. URine cx showed ESBl E. coli. Sensitivities made available today, transitioned to oral ciprofloxacin 500mg bid at discharge. Leukocytosis resolved at discharge. Pain is improving, she is afebrile. She is tolerating po intake including medications Physical Exam Narrative: General: No acute distress, AO x3 HEENT: PERRLA, pupils bilaterally equal and reactive, pallors not present Chest: Normal vesicular breath sounds, no added sounds, equal good air entry bilaterally CVS: S1-S2 regular, no murmurs, no tachycardia, no gallops, no rubs Abdomen: Soft, nontender, no organomegaly, bowel sounds present Neuro: No focal deficits, no facial deformity, AO x3, power 5/5 in all limbs Discharge Data Studies Completed and Pending Completed Studies During Hospitalization Category Date Time Status CT kidney stone [id number] Stat Cat Scan 06/22/24 11:30 Completed Pending at discharge Category Date Time Status Blood Culture Stat Lab 06/22/24 11:37 Results Radiology Impressions Abdomen/Pelvis CT 06/22/24 11:30 IMPRESSION: 1. Mildly enlarged edematous RIGHT kidney with perinephric and proximal periureteral stranding. Small amount of fluid along the course of the RIGHT ureter over the psoas muscle. No stone or obstruction of the kidney. Suspect changes are related to acute pyelonephritis. 2. No obstruction of the LEFT kidney. Nonobstructing 3 mm calcification lower pole. 3. Moderate constipation. 4. No free fluid or ascites. Laboratory Results WBC 9.49 10^3/uL (3.29-11.43) 06/24/24 03:10 Corrected WBC Cancelled 06/23/24 05:31 RBC 3.72 10^6/uL (3.85-5.65) L 06/24/24 03:10 Hgb 10.20 g/dL (11.27-16.99) L 06/24/24 03:10 Hct 32.4 % (36-47) L 06/24/24 03:10 MCV 87.1 fl (85-98) 06/24/24 03:10 MCH 27.4 pg (27-33) 06/24/24 03:10 MCHC 31.5 g/dL (30-55) 06/24/24 03:10 RDW 14.1 % (12.1-15.1) 06/24/24 03:10 Plt Count 212 10^3/cmm (157-399) 06/24/24 03:10 MPV 9.5 fL (7.4-10.4) 06/24/24 03:10 Gran % Cancelled 06/23/24 05:31 Neut % (Auto) 64.1 % 06/24/24 03:10 Lymph % (Auto) 24.1 % 06/24/24 03:10 [place] % (Auto) 9.7 % 06/24/24 03:10 Eos % (Auto) 1.5 % 06/24/24 03:10 Baso % (Auto) 0.3 % 06/24/24 03:10 Neut # (Auto) 6.08 10^3/uL (1.8-7.7) 06/24/24 03:10 Lymph # (Auto) 2.3 10^3/uL (0.8-4.8) 06/24/24 03:10 [place] # (Auto) 0.9 10^3/uL (0.2-0.9) 06/24/24 03:10 Eos # (Auto) 0.1 10^3/uL (0.0-0.8) 06/24/24 03:10 Baso # (Auto) 0.0 10^3/uL (0.0-0.1) 06/24/24 03:10 Absolute Gran (auto) Cancelled 06/23/24 05:31 Nucleated RBC % (auto) 0 % 06/24/24 03:10 Nucleated RBCs # 0.0 /100WBC 06/24/24 03:10 Sodium 136 mmol/L (136-145) 06/24/24 03:10 Potassium 3.6 mmol/L (3.5-5.1) 06/24/24 03:10 Chloride 101 mmol/L (98-107) 06/24/24 03:10 Carbon Dioxide 27 mmol/L (22-29) 06/24/24 03:10 Anion Gap 11.6 (5-19) 06/24/24 03:10 BUN 13 mg/dL (6-20) 06/24/24 03:10 Creatinine 0.8 mg/dL (0.5-0.9) 06/24/24 03:10 GFR Calculation 82.1 mL/min (90-130) L 06/24/24 03:10 Glucose 117 mg/dL (65-115) H 06/24/24 03:10 Estimat Average Glucose 97 06/23/24 07:49 Hemoglobin A1c 5.0 % (4.0-6.0) 06/23/24 07:49 Calculated Osmolality 283 mOsm/kg (285-295) L 06/24/24 03:10 Lactic Acid 1.1 mmol/L (0.5-2.2) 06/22/24 10:50 Calcium 8.3 mg/dL (8.5-10.5) L 06/24/24 03:10 Total Bilirubin 0.2 mg/dL (0.15-1.2) 06/24/24 03:10 AST 11 U/L (0-32) 06/24/24 03:10 ALT 15 U/L (0-33) 06/24/24 03:10 Alkaline Phosphatase 70 U/L (35-105) 06/24/24 03:10 C-Reactive Protein 180.3 mg/L (0.0-4.9) H 06/22/24 10:50 Total Protein 5.6 g/dL (6.6-8.7) L 06/24/24 03:10 Albumin 3.0 g/dL (3.5-5.2) L 06/24/24 03:10 Globulin 2.6 g/dL (1.3-4.6) 06/24/24 03:10 Lipase 20 U/L (13-60) 06/22/24 10:50 HCG, Qual Negative (Negative) 06/22/24 10:50 Urine Color Yellow (Yellow) 06/22/24 11:35 Urine Appearance Cloudy (CLEAR) A 06/22/24 11:35 Urine pH 5.5 (5-7) 06/22/24 11:35 Ur Specific [place] 1.020 (1.005-1.030) 06/22/24 11:35 Urine Protein 2+ (Negative) A 06/22/24 11:35 Urine Glucose (UA) Negative (Normal) 06/22/24 11:35 Urine Ketones Negative (Negative) 06/22/24 11:35 Urine Blood 2+ (Negative) A 06/22/24 11:35 Urine Nitrate Positive (Negative) A 06/22/24 11:35 Urine Bilirubin Negative (Negative) 06/22/24 11:35 Urine Urobilinogen 1.0 mg/dL (Negative) 06/22/24 11:35 Ur Leukocyte Esterase 2+ (Negative) A 06/22/24 11:35 Urine RBC 3-5 /hpf (0-2) 06/22/24 11:35 Urine WBC >100 /hpf (0-5) H 06/22/24 11:35 Ur Squamous Epith Cells 11-20 /hpf (0-5) H 06/22/24 11:35 Amorphous Sediment Not Reportable 06/22/24 11:35 Urine Bacteria 4+ /hpf (NONE) H 06/22/24 11:35 Hyaline Casts 6.61 /lpf 06/22/24 11:35 Urine Opiates Screen Negative ng/mL (Negative) 06/22/24 11:35 Ur Barbiturates Screen Negative ng/mL (Negative) 06/22/24 11:35 Ur Phencyclidine Scrn Negative ng/mL (Negative) 06/22/24 11:35 Ur Amphetamines Screen Positive ng/mL (Negative) H 06/22/24 11:35 U Benzodiazepines Scrn Negative ng/mL (Negative) 06/22/24 11:35 Urine Cocaine Screen Negative ng/mL (Negative) 06/22/24 11:35 U Marijuana (THC) Screen Negative ng/mL (Negative) 06/22/24 11:35 RPR w/Rflx to Titer Non-reactive (NON-REACTIVE) 06/23/24 05:31 C. trachomatis (PCR) Not detected 06/22/24 11:35 Hepatitis A IgM Ab Non-reactive (Nonreactive) 06/23/24 05:31 Hep Bs Antigen Non-reactive (Nonreactive) 06/23/24 05:31 Hep Bs Antibody > 1000.0 (11.5-1000) H 06/23/24 05:31 Hep B Core Total Ab Non-reactive (Nonreactive) 06/23/24 05:31 Hepatitis C Antibody Non-reactive (Nonreactive) 06/23/24 05:31 HIV 1&2 Ab & HIV 1 Ag Non-reactive (Non-Reactiv) 06/23/24 05:31 HIV 1&2 Antibody Non-reactive (Non-Reactiv) 06/23/24 05:31 N. gonorrhoeae (PCR) Not detected 06/22/24 11:35 Vitals Last Vital Signs Temp 98.6 F 06/24/24 12:39 Pulse 90 06/24/24 12:39 Resp 16 06/24/24 12:39 BP 103/65 06/24/24 12:39 Pulse Ox 99 06/24/24 12:39 O2 Del Method Room Air 06/24/24 12:00 Discharge Plan Discharge Patient Disposition: Home Condition: Stable Prescriptions: New acetaminophen 325 mg Tablet 650 mg PO Q6H PRN (Reason: Mild/Mod Pain Or Temp >/= 101) Qty: 30 0RF pantoprazole 40 mg Tablet,Delayed Release (Dr/Ec) 40 mg PO DAILY 30 Days Qty: 30 0RF ciprofloxacin HCl [Cipro] 500 mg tablet 500 mg PO BID 10 Days Qty: 20 0RF Discharge Orders: Discharge Order (Routine); Ordered 06/24/24 Ordered By: Naomie Potts Referrals: Cathy Salazar FNP [Referring] - 06/30/24 1:00 pm () Discharge Diet: Advance as tolerated and Usual diet Discharge Activity: Increase activity as tolerated Patient Instructions: Ciprofloxacin (By mouth), Pantoprazole (By mouth), Methamphetamine Abuse, Opioid Safety, Pyelonephritis Discharge Attestations Time Spent in Discharge Care*: greater than 30 min Quality Metrics Clinical Quality Measures [ No reported AMI, CVA or VTE this stay] Coding Level of Care Code Acute Code for Chg Fwd Diagnoses Pyelonephritis N12 Methamphetamine abuse F15.10 Screen for STD (sexually transmitted disease) Z11.3
== END 2024-06-24 12:43 | disposition home or self-care (01) | DRG 690 ==
LOC: ER 11:09 → MEDSURG 15:27
PROVIDERS: Emergency Medicine; Admitting Provider Student in an Organized Health Care Education/Training Program; Emergency Provider Family Medicine; Visit Provider Student in an Organized Health Care Education/Training Program
DX: N12 Tubulo-interstitial nephritis, not specified as acute or chronic (principal); Z16.12 Extended spectrum beta lactamase (ESBL) resistance; F15.10 Other stimulant abuse, uncomplicated; Z11.3 Encounter for screening for infections with a predominantly sexual mode of transmission; B96.20 Unspecified Escherichia coli [E. coli] as the cause of diseases classified elsewhere; J45.909 Unspecified asthma, uncomplicated; F31.9 Bipolar disorder, unspecified; F17.200 Nicotine dependence, unspecified, uncomplicated
CPT/HCPCS: 36415; 74176; 80053; 80306; 81001; 83036; 83605; 83690; 84703; 85025; 86140; 86592; 86705; 86706; 86709; 86803; 87040; 87077; 87086; 87186; 87340; 87491; 87591; 87806; 96365; 96375; 99285; J0692; J1885; J2270; J2405; J2543; J3370; J7030; J7050

== ENCOUNTER 2024-11-15 21:16 | Emergency (ER) | payer BC, MEDICAID, SELFPAY ==
[2024-11-15 21:19] VITALS: BP 120/87; PULSE 120; RESP 16; TEMP 37.3; O2SAT 99; BMI 28.3
--- NOTE | 2024-11-15 21:27 | XRR_ITS ---
PROCEDURE INFORMATION: Exam: XR Right Shoulder Exam date and time: 11/15/2024 9:29 PM Age: 34 years old Clinical indication: Injury or trauma; Fall; Blunt trauma (contusions or hematomas); Shoulder; Right TECHNIQUE: Imaging protocol: Radiologic exam of the right shoulder. Views: 2 or more views. COMPARISON: No relevant prior studies available. FINDINGS: Bones/joints: The visualized bony cortical margins and articulations appear to be intact and in the range of normal. There are no discrete linear areas of decreased density as might suggest the presence of the fracture. Soft tissues: Normal. Other findings: Clothing artifact is present. XR/XR shoulder RT min 2V* [id number] IMPRESSION: No acute osseous plain-film findings.
--- NOTE | 2024-11-15 21:40 | CTR_ITS ---
PROCEDURE INFORMATION: Exam: CT Head Without Contrast Exam date and time: 11/15/2024 9:45 PM Age: 34 years old Clinical indication: Injury or trauma; Fall; Blunt trauma (contusions or hematomas); Without loss of consciousness; Additional info: Fall, head injury TECHNIQUE: Imaging protocol: Computed tomography of the head without contrast. Radiation optimization: All CT scans at this facility use at least one of these dose optimization techniques: automated exposure control; mA and/or kV adjustment per patient size (includes targeted exams where dose is matched to clinical indication); or iterative reconstruction. COMPARISON: CT head wo con* [id number] 18/06/2019 00:15 RADIATION DOSE METRICS: Total DLP (mGy-cm): 1092.58 FINDINGS: Brain: Parenchymal structures of the brain demonstrate normal anatomy and attenuation. The midline is intact. No hemorrhage. Unremarkable white matter. No mass effect. The midline is intact. Beam hardening artifact obscures resolution through the posterior fossa structures. Cerebral ventricles: Ventricles demonstrate normal size shape and configuration and are felt to be in proportion to the degree of widening of the sulci, sylvian fissures and basilar cisterns. Paranasal sinuses: Visualized sinuses are unremarkable. No fluid levels. Mastoid air cells: Visualized mastoid air cells are well aerated. Bones: Unremarkable. No acute fracture. Soft tissues: High right parietal scalp hematoma/laceration. CT/CT head wo con* [id number] IMPRESSION: 1. No acute intracranial head CT findings identified. 2. High right parietal scalp hematoma with suspected laceration.
--- NOTE | 2024-11-15 21:41 | ED_ITS ---
HPI - Fall General: Chief Complaint: Fall Stated Complaint: skateboard accident, head lac and R shoulder pain Time Seen by Provider: 11/15/24 21:38 History of Present Illness: 34-year-old female presents emergency ro om after she had her wreck on a skateboard. She hit the top of her head on the right posterior crown and she has a laceration. No loss of consciousness. No altered mental status. No nausea or vomiting. She has some mild pain in her shoulder and elbow and has some abrasions. She did feel little bit dizzy for a while. No chest pain. No shortness of breath. No lower extremity injuries. No abdominal pain. Unsure when her last tetanus was. Related Data Previous Rx's ?Medication ?Instructions ?Recorded acetaminophen 325 mg tablet 650 mg (2 x 325 mg) PO Q6H PRN 06/24/24 Mild/Mod Pain Or Temp >/= 101 #30 tabs Allergies Allergy/AdvReac Type Severity Reaction Status Date / Time bee venom protein (honey bee) Allergy Unknown Verified 03/06/24 14:04 chocolate flavor AdvReac Rash Verified 03/06/24 14:04 Review of Systems Narrative: Constitutional symptoms: Negative except as documented in HPI. Skin symptoms: Negative except as documented in HPI. Eye symptoms: Negative except as documented in HPI. ENMT symptoms: Negative except as documented in HPI. Respiratory symptoms: Negative except as documented in HPI. Cardiovascular symptoms: Negative except as documented in HPI. Gastrointestinal symptoms: Negative except as documented in HPI. Genitourinary symptoms: Negative except as documented in HPI. Musculoskeletal symptoms: Negative except as documented in HPI. Neurologic symptoms: Negative except as documented in HPI. Psychiatric symptoms: Negative except as documented in HPI. Endocrine symptoms: Negative except as documented in HPI. PFSH ED PFSH: Medical History Asthma -Diagnosed as a child-uses it intermittently-last use was in spring 2019. Bipolar 1 disorder Dx in her early 20s seizures-was on medication in the past but has not seen a therapist or been on medication since at least 2014. Surgical History S/P eye surgery 1997--Performed at [facility] [place], [place] --- Eye surgery done after trauma to eye S/P tubal ligation 08/27/2018--Bilateral tubal ligation @ [place], [place]. Dr. Montano. Family History Family/Other Seizure uncle and cousin Mother Asthma Sister Asthma Father Hypertension Hyperlipidemia Heart disease Diabetes Brother Hypertension Grandmother Hypertension paternal Heart disease paternal Grandfather Hypertension paternal Denies family history of Colon cancer Ovarian cancer Uterine cancer Thyroid disease Stroke Social History Smoking and tobacco/nicotine status: current every day tobacco/nicotine user Alcohol intake: unknown Substance/Drug Use: former Additional social history: - Tobacco Use: Started smoking at age 17 and has smoked up to 1/2 pack per day since then. Currently smokes 2-3 cigarettes daily. Drug Use: -Has used marijuana in the past- -Has also used methamphetamines in the p ast and states she stopped using methamphetamines when she found out she was in 2013. Currently using methamphetamines intravenously again, last use 06/21. 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 Physical Exam Narrative: EXAM NARRATIVE: General: Alert, no acute distress. Skin: Warm, dry. Head: Normocephalic, large stellate laceration to the top of the head.. Neck: Supple, trachea midline. Eye: Extraocular movements are intact. Ears, nose, mouth and throat: mucosa moist. Cardiovascular: Regular, Normal peripheral perfusion. Respiratory: Lungs are clear to auscultation, respirations are non-labored, breath sounds are equal, Symmetrical chest wall expansion. Gastrointestinal: Soft, Nontender, Non distended Musculoskeletal: Normal ROM, no deformity. Neurological: Alert and oriented, No focal neurological deficit observed. Psychiatric: Cooperative, appropriate mood & affect. Course Vital Signs: Vital signs: Vital Signs Temperature 99.2 F 11/15/24 21:19 Pulse Rate 120 H 11/15/24 21:19 Respiratory Rate 16 11/15/24 21:19 Blood Pressure 120/87 11/15/24 21:19 Pulse Oximetry 99 11/15/24 21:19 Oxygen Delivery Me thod Room Air 11/15/24 21:19 MDM - Fall Medical Decision Making Medical decision making: Differential diagnosis including but not limited to and based on the above HPI, review of systems and physical exam: patient with fall and head injury. Subdural hematoma, subarachnoid hemorrhage, concussion, skull fracture. Orders placed to evaluate differential diagnosis based on the above differential, HPI and physical exam CT scan of the head was ordered. I reviewed the patient's medical record. CT head: Irregularity to the tissue where the laceration has. No acute intracranial process. no intracranial hemorrhage, no evidence of infarct. no evidence of acute fracture.This was reviewed and interpreted by myself the ER physician. X-ray of the right shoulder: No fractures or dislocations. This was reviewed and interpreted by myself the emergency room physician. I also reviewed the radiology report. Laceration repair procedure: Time: 2000 Confirmed patient, procedure, side, and site. Time out performed prior to procedure. Verbal consent was obtained by patient and/or responsible libertarian. Indication: Laceration Location: Right coronal area Length: 4cm Description: Stellate lesion with 3 separate directions coming off of central area. Anesthesia: 6 mL 1% lidocaine with epinephrine Area prepared by sterile field with Betadine. #7 , enid were utilized, simple, interrupted technique. Post procedure examination: Circulation, motor, sensory intact. Patient tolerated the procedure well. No complications, bleeding. Total time: 7 min. Pt advised to keep the area clean and dry, wash twice per day with antibacterial soap and water. Return to the ED or PCP in 10 days for suture removal. Assessment and plan: Scalp laceration Head injury Shoulder injury ? Tetanus updated. Laceration repaired. - Discharged home - Discussed plan with patient. Answered any questions. - Evaluation and treatment of this problem were appropriate in the emergency setting. Lab Data Radiology Impressions Shoulder X-Ray 11/15/24 21:27 IMPRESSION: No acute osseous plain-film findings. Head CT 11/15/24 21:40 IMPRESSION: 1. No acute intracranial head CT findings identified. 2. High right parietal scalp hematoma with suspected laceration. All radiology interpretation(s) finalized by discharge Discharge Plan Discharge Patient Disposition: Home Clinical Impression: Laceration of scalp, Head injury Condition: Stable Prescriptions: No Action acetaminophen 325 mg Tablet 650 mg PO Q6H PRN (Reason: Mild/Mod Pain Or Temp >/= 101) Qty: 30 0RF Discharge Orders: Discharge ED (Routine); Ordered 11/15/24 Ordered By: Yohana Peck Discharge Diet: Usual diet Discharge Activity: Increase activity as tolerated Patient Instructions: Staple Care (ED), Opioid Safety, Pain Management Activity Restrictions/Additional Instructions: Keep the area clean and dry, wash twice per day with antibacterial soap and water. Return to your primary provider or the emergency room in 10 days for suture removal. Avoid any prolonged submersion in water. Avoid all rae water, pond water, streams or other untreated water. Thank you for choosing [facility] for your healthcare needs today. You have been screened and evaluated and felt safe for discharge. Health conditions do change or evolve sometimes and as such it is important that you follow up with your Primary Doctor to be re checked, 3-5 days is a general good time frame for follow up. You are always welcome to return to the ED for re assessment if your symptoms are worsening or you have new concerns Print Language: Maori Coding Level of Care Code ED Cold Type Composing Machine Operator for Rivas Hart
[2024-11-15 22:00] VITALS: BP 134/90; PULSE 108; O2SAT 100
[2024-11-15] MEDS: lidocaine-epi 1% 20 mL INJ INJECTION (22:15)
[2024-11-15] MEDS: tetanus-dipt-pertussis 0.5 mL SDV IM (22:16)
[2024-11-15] MEDS: HYDROcodone-acetaminophen 10-325 mg Tablet 1 TAB PO (22:22)
[2024-11-15 22:40] VITALS: BP 129/63; PULSE 115; O2SAT 100
== END 2024-11-15 22:41 | disposition home or self-care (01) ==
PROVIDERS: Emergency Provider Emergency Medicine
DX: S01.01XA Laceration without foreign body of scalp, initial encounter (principal); S09.90XA Unspecified injury of head, initial encounter; Z72.0 Tobacco use; V00.131A Fall from skateboard, initial encounter
CPT/HCPCS: 12002; 70450; 73030; 90471; 90715; 99284; J9999

== ENCOUNTER 2025-01-01 13:47 | Emergency (ER) | payer BC, MEDICAID, SELFPAY ==
[2025-01-01 13:48] VITALS: BP 144/80; PULSE 59; RESP 20; TEMP 36.9; O2SAT 100; BMI 28.3
--- OUTSIDE RECORDS SUMMARY | 2025-01-01 13:50 | XMS_ITS | Clinical Summary ---
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 Name Role Phone Unavailable Primary Care Provider Unavailabl e Allergies No known active allergies Medications No known medications Immunizations Immunization Administration Dates Next Due (GARDASIL)(9-45 YRS) HUMAN P APILLOMAVIRUS VACCINE, TYPES 6, 11, 16, 18, QUADRIVALENT (4VHPV), 3 DOSE, IM 05/17/2008 (M-M-R II/PRIORIX)(12 MO UP) MEASLES, MUMPS AND RUBELLA VIRUS VACCINE, 0.5 ML IM/SUBCUT 01/14/1995,02/07/1991 (TDVAX)(7 YRS UP) TETANUS AN D DIPHTHERIA TOXOIDS, ADSORBED (2 LF OF TETANUS TOXOID AND 2 LF OF DIPHTHERIA TOXOID), 0.5ML (PF), IM 02/12/2004 Dt Dtp Dtap Vaccine 04/15/1995,01/14/1995,1990 HIB, Unspecified Formulation 02/07/1991 Hepatitis B Vaccine 05/17/2008,02/12/2004,2002 IPV/OPV 04/15/1995,01/14/1995,02/07/1991 Social History Tobacco Use Types Packs/Day Years Used Date Smoking Tobacco: Every Day Cigarettes Smokeless Tobacco: Never Tobacco Cessation:Ready to Q uit: Not Asked; Counseling Given: Not Answered Alcohol Use Standard Drinks/Week Comments Not Currently 0 (1 standard drink = 0.6 oz pur e alcohol) Comments No Sex and Gender Information Value Date Recorded Sex Assigned at Not on file Legal Sex Female 1:46 AM 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 Gender Identity Not on file Sexual Orientation Not on file Last Filed Vital Signs Vital Sign Reading Time Taken Comments Blood Pressure 130/94 06/01/2023 9:00 PM 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 Pulse 60 01/14/2023 3:52 PM CDT Temperature 36.1 C (97 F) 06/01/2023 9:00 PM 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 Respiratory Rate 20 06/01/2023 9:00 PM 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 Oxygen Saturation 98% 06/01/2023 9:00 PM 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 Inhaled Oxygen Concentration - - Weight 99.4 kg (219 lb 3.2 oz) 06/01/2023 8:20 P M 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 Height 160 cm (5' 3 ) 06/01/2023 8:20 PM 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 Body Mass Index 38.83 06/01/2023 8:20 PM 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
--- OUTSIDE RECORDS SUMMARY | 2025-01-01 13:51 | XMS_ITS | Patient Health Record ---
Author Organization [facility] Address [address] [place] [address] Support Name Relationship Address Phone Cecil Rutledge Emergency Contact , [place] Faviola Rutledge Guarantor Unknown Allergies Allergen (clinical drug ingredient) Drug/Non Drug Allergy documented on EMR Reaction Allergy Type Onset Date Status peanut allergenic extract Peanut (Diagnostic) Unknown Drug Allergy Active Bee Sting anaphylaxis Allergy Active Reason For Referral No Information Medications Medication SIG (Take, Route, Frequency, Duration) Notes Start Date End Date Status Albuterol Sulfate 108 (90 Base) MCG/ACT 1 puff as needed Inhalation every 4 hrs; Duration: 90 days As needed wheezing/shortness of breath 08/21/2022 Active EpiPen 2-Onesimo 0.3 MG/0.3ML as directed Injection Active Fluticasone-Salmeterol 45-21 MCG/ACT 2 puffs Inhalation Twice a day; Duration: 90 days 08/21/2022 Active EPINEPHrine 0.3 MG/0.3ML as directed Injection once; Duration: 90 days As needed bee sting 08/21/2022 Active buPROPion HCl ER (XL) 150 MG 1 tablet in the morning Orally Once a day; Duration: 30 days 08/21/2022 Active Albuterol Sulfate HFA 108 (90 Base) MCG/ACT 1 puff as needed Inhalation every 4 hrs Active Social History Tobacco Use: Social History Observation Description Date Details (start date - stop date) Current Smoker NA - NA Alcohol Screening: Question Answer Notes Did you have a drink containing alcohol in the p ast year? No Points 0 Interpretation Negative Tobacco: Question Answer Notes Are you a: current smoker How often do you smoke cigar ettes? (current smoker) every day Additional Findings: Tobacco User Modera te cigarette smoker (10-19 cigs/day) Section Notes: Occupation: [employer] Occupation: [employer] Problems Problem Type SNOMED Code ICD Code Onset Dates Problem Status W/U Status Risk Notes Problem Asthma (438365920) Asthma (J45.909) Active conf irmed Problem Tobacco use (165377901) Tobacco use (Z72.0) Active confirmed Problem Bipolar 1 disorder (725946649) Bipolar 1 disorder (F31.9) Active confirmed Problem Sciatica (27386275) Acute left-sided low back pain with left-sided sciatica (M54.42) Active confirmed Problem Morbid obesity (422056995) Severe obesity (BMI >= 40) (E66.01) Active confirmed Problem History of methamphetamine abuse (34225368651861289 ) History of methamphetamine abuse (F15.11) Active confirmed Problem Allergy to bee venom (992638517) 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) Active confirmed Plan Of Treatment No Information Insurance Providers Payer Name Payer Address Payer Phone Subscriber Number Group Number Insured Name Patient Relationship to Insured Coverage Start Date Coverage End Date [facility] [address] [address] [place] [address] [id number] Faviola Rutledge Self - patient is the insured 3 [employer] [address] [address] [place] [address] [id number] Faviola Rutledge Self - patient is the insured 1 Medications Administered Medication Instructions Date of Administration Dosage Notes Ketorolac 60mg/2ml 01/24/2022 60 mg [facility]: 39239-433-28 LOT: [id number] EXP: 03/23 Medical (General) History Medical History History ICD Code MRSA Seasonal allergies Asthma J45.909 Surgical History Surgery Date(Month/Year) Tubal ligation 2018 Hospitalization History Reason Date(Month/Year) MRSA 2008
[2025-01-01 14:13] LABS: Glucose Urine UA Negative (Normal); Nitrate Urine Negative (Negative); Specific Gravity, Urine 1.015 (1.005-1.030)
--- NOTE | 2025-01-01 14:13 | ED_ITS ---
HPI - Female Genitourinary 2 General: Chief complaint: Vaginal Bleeding Stated complaint: ABD PAIN Time Seen by Provider: 01/01/25 13:48 History of Present Illness: 34-year-old female presents with lower a bdominal pain, vaginal plane and bleeding. She reports that she felt a pop down her your abdomen and then developed vaginal bleeding. Her last menstrual period was 10/30/2024. She is unsure if she is . Date of Last Menstrual Period: 10/30/24 Related Data Previous Rx's ?Medication ?Instructions ?Recorded acetaminophen 325 mg tablet 650 mg (2 x 325 mg) PO Q6H PRN 06/24/24 Mild/Mod Pain Or Temp >/= 101 #30 tabs Allergies Allergy/AdvReac Type Severity Reaction Status Date / Time bee venom protein (honey bee) Allergy Unknown Verified 03/06/24 14:04 chocolate flavor AdvReac Rash Verified 03/06/24 14:04 Review of Systems 2 : Reports: vaginal bleeding and pelvic pain PFS ED 2 PFSH: Medical History (Updated 01/01/25 @ 16:44 by Jose Enrique Kwok DO) Asthma -Diagnosed as a child-uses it intermittently-last use was in spring 2019. Bipolar 1 disorder Dx in her early 20s seizures-was on medication in the past but has not seen a therapist or been on medication since at least 2014. Surgical History S/P eye surgery 1997--[place] [facility] --- Eye surgery done after trauma to eye S/P tubal ligation 08/27/2018--Bilateral tubal ligation @ [place], [place]. Dr. Montano. Family History Family/Other Seizure uncle and cousin Mother Asthma Sister Asthma Father Hypertension Hyperlipidemia Heart disease Diabetes Brother Hypertension Grandmother Hypertension paternal Heart disease paternal Grandfather Hypertension paternal Denies family history of Colon cancer Ovarian cancer Uterine cancer Thyroid disease Stroke Social History Smoking and tobacco/nicotine status: current every day tobacco/nicotine user Alcohol intake: unknown Substance/Drug Use: former Additional social history: - Tobacco Use: Started smoking at age 17 and has smoked up to 1/2 pack per day since then. Currently smokes 2-3 cigarettes daily. Drug Use: -Has used marijuana in the past- -Has also used methamphetamines in the p ast and states she stopped using methamphetamines when she found out she was in 2013. Currently using methamphetamines intravenously again, last use 06/21. 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 Female Reproductive History: Date of last menstrual period: 10/30/24 Physical Exam 2 Const: COMMON NORMALS: patient oriented x3 GENERAL APPEARANCE: anxious Resp: COMMON NORMALS: normal respiratory effort, No use of accessory muscles and clear to auscultation bilaterally AUSCULTATION: clear to auscultation bilaterally Cardio: COMMON NORMALS: regular rate and regular rhythm RATE: regular rate RHYTHM: regular rhythm GI: COMMON NORMALS: Soft to palpation PALPATION: Yes Soft to palpation and Yes Tenderness to palpation present (GI) (Lower abdomen) Extremity: COMMON NORMALS: normal to inspection and capillary refill normal Neuro: COMMON NORMALS: patient oriented x3 Psych: COMMON NORMALS: mental status grossly normal and cooperative Skin: COMMON NORMALS: no rashes or lesions noted GENERAL SKIN EXAM: no rashes or lesions noted Course 2 Vital Signs: Vital signs: Vital Signs Temperature 98.4 F 01/01/25 13:48 Pulse Rate 59 L 01/01/25 13:48 Respiratory Rate 20 H 01/01/25 13:48 Blood Pressure 144/80 01/01/25 13:48 Pulse Oximetry 100 01/01/25 13:48 Oxygen Delivery Me thod Room Air 01/01/25 13:48 MDM - Female Medical Decision Making Patient's labs were reviewed and showed no acute findings. I did obtain an ultrasound due to patient's symptoms of discomfort and shows significant findings. Patient is likely does have an dysmenorrhea and painful menstrual cycle. Patient was stable and discharged back to senior care with PD. Lab Data 01/01/25 14:22 01/01/25 14:22 Radiology Impressions Transvaginal US 01/01/25 15:01 IMPRESSION: 1. No acute pathology. 2. 1.9 cm uterine fibroid. Ovaries within normal limits. 3. Minimal free fluid in the right pelvis. Laboratory Results WBC 8.13 10^3/uL (3.29-11.43) 01/01/25 14:22 RBC 4.51 10^6/uL (3.85-5.65) 01/01/25 14:22 Hgb 12.60 g/dL (11.27-16.99) 01/01/25 14:22 Hct 39.1 % (36-47) 01/01/25 14:22 MCV 86.7 fl (85-98) 01/01/25 14:22 MCH 27.9 pg (27-33) 01/01/25 14:22 MCHC 32.2 g/dL (30-55) 01/01/25 14:22 RDW 12.9 % (12.1-15.1) 01/01/25 14:22 Plt Count 322 10^3/cmm (157-399) 01/01/25 14:22 MPV 9.7 fL (7.4-10.4) 01/01/25 14:22 Neut % (Auto) 64.8 % 01/01/25 14:22 Lymph % (Auto) 28.0 % 01/01/25 14:22 [place] % (Auto) 4.6 % 01/01/25 14:22 Eos % (Auto) 1.5 % 01/01/25 14:22 Baso % (Auto) 0.7 % 01/01/25 14:22 Neut # (Auto) 5.27 10^3/uL (1.8-7.7) 01/01/25 14:22 Lymph # (Auto) 2.3 10^3/uL (0.8-4.8) 01/01/25 14:22 [place] # (Auto) 0.4 10^3/uL (0.2-0.9) 01/01/25 14:22 Eos # (Auto) 0.1 10^3/uL (0.0-0.8) 01/01/25 14:22 Baso # (Auto) 0.1 10^3/uL (0.0-0.1) 01/01/25 14:22 Nucleated RBC % (auto) 0 % 01/01/25 14:22 Nucleated RBCs # 0.0 /100WBC 01/01/25 14:22 Sodium 138 mmol/L (136-145) 01/01/25 14:22 Potassium 4.4 mmol/L (3.5-5.1) 01/01/25 14:22 Chloride 103 mmol/L (98-107) 01/01/25 14:22 Carbon Dioxide 24 mmol/L (22-29) 01/01/25 14:22 Anion Gap 15.4 (5-19) 01/01/25 14:22 BUN 11 mg/dL (6-20) 01/01/25 14:22 Creatinine 0.7 mg/dL (0.5-0.9) 01/01/25 14:22 GFR Calculation 95.2 mL/min (90-130) 01/01/25 14:22 Glucose 96 mg/dL (65-115) 01/01/25 14:22 Calculated Osmolality 285 mOsm/kg (285-295) 01/01/25 14:22 Calcium 9.4 mg/dL (8.5-10.5) 01/01/25 14:22 Total Bilirubin 0.3 mg/dL (0.15-1.2) 01/01/25 14:22 AST 10 U/L (0-32) 01/01/25 14:22 ALT 9 U/L (0-33) 01/01/25 14:22 Alkaline Phosphatase 76 U/L (35-105) 01/01/25 14:22 Total Protein 7.2 g/dL (6.6-8.7) 01/01/25 14:22 Albumin 4.0 g/dL (3.5-5.2) 01/01/25 14:22 Globulin 3.2 g/dL (1.3-4.6) 01/01/25 14:22 Ser , Semi-Qnt < 1.00 mIU/mL 01/01/25 14:22 Urine Color Yellow (Yellow) 01/01/25 14:03 Urine Appearance Turbid (CLEAR) A 01/01/25 14:03 Urine pH 8.0 (5-7) A 01/01/25 14:03 Ur Specific [place] 1.015 (1.005-1.030) 01/01/25 14:03 Urine Protein Negative (Negative) 01/01/25 14:03 Urine Glucose (UA) Negative (Normal) 01/01/25 14:03 Urine Ketones Negative (Negative) 01/01/25 14:03 Urine Blood Negative (Negative) 01/01/25 14:03 Urine Nitrate Negative (Negative) 01/01/25 14:03 Urine Bilirubin Negative (Negative) 01/01/25 14:03 Urine Urobilinogen 1.0 mg/dL (Negative) 01/01/25 14:03 Ur Leukocyte Esterase Negative (Negative) 01/01/25 14:03 Urine RBC 0-2 /hpf (0-2) 01/01/25 14:03 Urine WBC 0-5 /hpf (0-5) 01/01/25 14:03 Ur Squamous Epith Cells 0-5 /hpf (0-5) 01/01/25 14:03 Amorphous Sediment 2+ /hpf 01/01/25 14:03 Urine Bacteria None seen /hpf (NONE) 01/01/25 14:03 Hyaline Casts 0.40 /lpf 01/01/25 14:03 All radiology interpretation(s) finalized by discharge Discharge Plan Discharge Patient Disposition: Home Clinical Impression: Dysmenorrhea Condition: Stable Prescriptions: No Action acetaminophen 325 mg Tablet 650 mg PO Q6H PRN (Reason: Mild/Mod Pain Or Temp >/= 101) Qty: 30 0RF Discharge Orders: Discharge ED (Routine); Ordered 01/01/25 Ordered By: Jose Enrique Kwok Discharge Diet: Usual diet Discharge Activity: Resume usual activity Patient Instructions: Dysmenorrhea (ED), Uterine Fibroids (ED), Menorrhagia (ED), Opioid Safety, Pain Management, Patient Portal & Navjot Instructions Print Language: Luxembourger Coding Level of Care Code ED Pigment Furnace Tender for Rivas Hart
[2025-01-01 14:58] LABS: Hematocrit 39.1 % (36-47); Hemoglobin 12.60 g/dL (11.27-16.99); Mean Corpuscular HGB Conc 32.2 g/dL (30-55); Mean Corpuscular Hemoglobin 27.9 pg (27-33); Mean Corpuscular Volume 86.7 fl (85-98); Nucleated Red Blood Cells % 0 %; Platelet Count 322 10^3/cmm (157-399); Red Blood Count 4.51 10^6/uL (3.85-5.65); White Blood Count 8.13 10^3/uL (3.29-11.43)
--- NOTE | 2025-01-01 15:01 | USR_ITS ---
PROCEDURE INFORMATION: Exam: US Pelvis, Transvaginal, Non-Obstetric Exam date and time: 01/01/2025 4:15 PM Age: 34 years old Clinical indication: Pelvic pain; Prior surgery; Surgery date: 6+ months; Surgery type: 6 years ago patient had tubal ligation; Additional info: Abnormal vaginal bleeding, pain TECHNIQUE: Imaging protocol: Real-time transvaginal pelvic (non-obstetric) ultrasound with image documentation. Transvaginal imaging was used for better evaluation of the endometrium, adnexa, and/or cervix. COMPARISON: US OB lmt with transvaginal 01/02/2018 1:27 AM FINDINGS: Uterus: Uterus measures 9.0 x 5.4 x 4.9 cm. Endometrial thickness is 1.3 cm. Mixed echogenicity structure in the posterior uterine fundus measuring 1.9 cm in greatest dimension most likely representing fibroid. Right ovary/adnexa: Right ovary measures 2.6 x 1.9 x 2.8 cm and is within normal limits. Normal vascularity. Left ovary/adnexa: Left ovary measures 2.8 x 2.1 x 2.4 cm and is within normal limits. Normal vascularity. Intraperitoneal space: Trace free fluid is noted in the right pelvis. US/US transvaginal [id number] IMPRESSION: 1. No acute pathology. 2. 1.9 cm uterine fibroid. Ovaries within normal limits. 3. Minimal free fluid in the right pelvis.
[2025-01-01 15:11] LABS: Add Urine Microscopic? YES
[2025-01-01 15:16] LABS: Alanine Aminotransferase 9 U/L (0-33); Albumin Level 4.0 g/dL (3.5-5.2); Alkaline Phosphatase 76 U/L (35-105); Anion Gap 15.4 (5-19); Aspartate Amino Transferase 10 U/L (0-32); Blood Urea Nitrogen 11 mg/dL (6-20); Calcium 9.4 mg/dL (8.5-10.5); Carbon Dioxide 24 mmol/L (22-29); Chloride 103 mmol/L (98-107); Creatinine Clr Calc Pharmacy 107.0823; Globulin 3.2 g/dL (1.3-4.6); Glucose 96 mg/dL (65-115); Osmolality Calculated 285 mOsm/kg (285-295); Potassium 4.4 mmol/L (3.5-5.1); Sodium 138 mmol/L (136-145); Total Protein 7.2 g/dL (6.6-8.7)
[2025-01-01 15:20] LABS: UA Slide Review UA Slide Review Perf
== END 2025-01-01 16:53 | disposition home or self-care (01) ==
PROVIDERS: Emergency Provider Student in an Organized Health Care Education/Training Program
DX: N94.6 Dysmenorrhea, unspecified (principal); Z72.0 Tobacco use
CPT/HCPCS: 36415; 76830; 80053; 81001; 84702; 85025; 96372; 99284; J1885

== ENCOUNTER 2025-01-11 20:21 | Emergency (ER) | payer BC, MEDICAID, SELFPAY ==
[2025-01-11 20:21] VITALS: BP 111/73; PULSE 64; RESP 30; TEMP 36.6; O2SAT 100
[2025-01-11 20:30] VITALS: BP 111/73; PULSE 61; RESP 27; O2SAT 100
[2025-01-11 20:36] LABS: Hematocrit 38.1 % (36-47); Hemoglobin 12.80 g/dL (11.27-16.99); Mean Corpuscular HGB Conc 33.6 g/dL (30-55); Mean Corpuscular Hemoglobin 27.9 pg (27-33); Mean Corpuscular Volume 83.0 fl (85-98); Nucleated Red Blood Cells % 0 %; Platelet Count 273 10^3/cmm (157-399); Red Blood Count 4.59 10^6/uL (3.85-5.65); White Blood Count 15.38 10^3/uL (3.29-11.43)
--- NOTE | 2025-01-11 20:39 | W.ED.WEAKNES ---
HPI - Weakness General: Chief complaint: Weakness Stated complaint: WEAKNESS Time Seen by Provider: 01/11/25 20:24 History of Present Illness: 34-year-old female who presents to the emergency room by ambulance from intermediate with complaints of weakness. She says she started feeling dizzy. Said she became numb in her arms and her legs. Around her mouth. She had chest tightness. On presentation she is quite tachypneic. No significant medical problems. Related Data Previous Rx's ?Medication ?Instructions ?Recorded acetaminophen 325 mg tablet 650 mg (2 x 325 mg) PO Q6H PRN 06/24/24 Mild/Mod Pain Or Temp >/= 101 #30 tabs hydroxyzine HCl 25 mg tablet 25 mg PO BID PRN anxiety #30 tabs 01/11/25 Allergies Allergy/AdvReac Type Severity Reaction Status Date / Time bee venom protein (honey bee) Allergy Unknown Verified 03/06/24 14:04 chocolate flavor AdvReac Rash Verified 03/06/24 14:04 Review of Systems Narrative: Constitutional symptoms: Negative except as documented in HPI. Skin symptoms: Negative except as documented in HPI. Eye symptoms: Negative except as documented in HPI. ENMT symptoms: Negative except as documented in HPI. Respiratory symptoms: Negative except as documented in HPI. Cardiovascular symptoms: Negative except as documented in HPI. Gastrointestinal symptoms: Negative except as documented in HPI. Genitourinary symptoms: Negative except as documented in HPI. Musculoskeletal symptoms: Negative except as documented in HPI. Neurologic symptoms: Negative except as documented in HPI. Psychiatric symptoms: Negative except as documented in HPI. Endocrine symptoms: Negative except as documented in HPI. PFS ED PFSH: Medical History (Updated 01/11/25 @ 21:06 by Yohana Peck MD) Asthma -Diagnosed as a child-uses it intermittently-last use was in spring 2019. Bipolar 1 disorder Dx in her early 20s seizures-was on medication in the past but has not seen a therapist or been on medication since at least 2014. Surgical History S/P eye surgery 1997--Performed at [facility] [place] in [place], [place] --- Eye surgery done after trauma to eye S/P tubal ligation 08/27/2018--Bilateral tubal ligation @ [place], [place]. Dr. Montano. Family History Family/Other Seizure uncle and cousin Mother Asthma Sister Asthma Father Hypertension Hyperlipidemia Heart disease Diabetes Brother Hypertension Grandmother Hypertension paternal Heart disease paternal Grandfather Hypertension paternal Denies family history of Colon cancer Ovarian cancer Uterine cancer Thyroid disease Stroke Social History Smoking and tobacco/nicotine status: current every day tobacco/nicotine user Alcohol intake: unknown Substance/Drug Use: former Additional social history: - Tobacco Use: Started smoking at age 17 and has smoked up to 1/2 pack per day since then. Currently smokes 2-3 cigarettes daily. Drug Use: -Has used marijuana in the past- -Has also used methamphetamines in the past and states she stopped using methamphetamines when she found out she was in 2013. Currently using methamphetamines intravenously again, last use 06/21. 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 Physical Exam Narrative: EXAM NARRATIVE: General: Alert, no acute distress. Skin: Warm, dry. Head: Normocephalic, atraumatic. Neck: Supple, trachea midline. Eye: Extraocular movements are intact. Ears, nose, mouth and throat: mucosa moist. Cardiovascular: Regular, Normal peripheral perfusion. Respiratory: Lungs are clear to auscultation, respirations are non-labored, she is a bit tachypneic. Gastrointestinal: Soft, Nontender, Non distended Musculoskeletal: Normal ROM, no deformity. Neurological: Alert and oriented, No focal neurological deficit observed. Psychiatric: Cooperative, patient is tachypneic and appears anxious Course Vital Signs: Vital signs: Vital Signs Temperature 97.9 F 01/11/25 20:21 Pulse Rate 61 01/11/25 20:30 Respiratory Rate 27 H 01/11/25 20:30 Blood Pressure 111/73 01/11/25 20:30 Pulse Oximetry 100 01/11/25 20:30 Oxygen Delivery Me thod Room Air 01/11/25 20:21 MDM - Weakness Medical Decision Making Medical decision making: Differential diagnosis for patient presenting with generalized weakness including but not limited to and based on the above HPI, review of systems and physical exam: Sepsis. Dehydration. Renal failure. Electrolyte abnormalities. Anemia. Congestive heart failure. Hypotension. Coronary syndrome. Hepatitis. Cirrhosis. Infections such as pneumonia, urinary tract infection, Tick bourne illness, Cellulitis, Viral infections including influenza and Covid-19. Workup: labwork and lab/exam driven imaging ordered to evaluate, rule in and rule out above pathologies. Lab Review: Laboratory results were reviewed and interpreted by myself the emergency room physician. Mild leukocytosis. No anemia. No renal failure. Drug screen is negative. Urinalysis is negative for infection. ABG does show hypercapnia which would be related to anxiety/panic and tachypnea. I reviewed the patient's medical record. Reexamination: Patient remained stable. No increased work of breathing. No altered mental status. No focal motor deficits. Assessment and plan: Panic attack Hypocapnia ?IM Ativan in the emergency room. - Discharged home - Discussed plan with patient. Answered any questions. - Evaluation and treatment of this problem were appropriate in the emergency setting. Lab Data 01/11/25 20:31 01/11/25 20: Laboratory Results WBC 15.38 10^3/uL (3.29-11.43) H 01/11/25 20: RBC 4.59 10^6/uL (3.85-5.65) 01/11/25 20: Hgb 12.80 g/dL (11.27-16.99) 01/11/25 20: Hct 38.1 % (36-47) 01/11/25 20: MCV 83.0 fl (85-98) L 01/11/25 20: MCH 27.9 pg (27-33) 01/11/25 20: MCHC 33.6 g/dL (30-55) 01/11/25 20: RDW 13.0 % (12.1-15.1) 01/11/25 20: Plt Count 273 10^3/cmm (157-399) 01/11/25 20: MPV 9.7 fL (7.4-10.4) 01/11/25 20: Neut % (Auto) 71.0 % 01/11/25 20: Lymph % (Auto) 23.2 % 01/11/25 20: [place] % (Auto) 4.4 % 01/11/25: Eos % (Auto) 0.4 % 01/11/25: Baso % (Auto) 0.5 % 01/11/25 Neut # (Auto) 10.93 10^3/uL (1.8-7.7) H 01/11/25: Lymph # (Auto) 3.6 10^3/uL (0.8-4.8) 01/11/25: [place] # (Auto) 0.7 10^3/uL (0.2-0.9) 01/11/25: Eos # (Auto) 0.1 10^3/uL (0.0-0.8) 01/11/25 Baso # (Auto) 0.1 10^3/uL (0.0-0.1) 01/11/25 Nucleated RBC % (auto) 0 % 01/11/25 Nucleated RBCs # 0.0 /100WBC 01/11/25 Specimen Type Arterial 01/11/25 20: Sample Site Brachial, right 01/11/25 20: ABG pH 7.63 (7.35-7.45) H* 01/11/25 20: ABG pCO2 20.5 mmHg (35-45) L 01/11/25 20: ABG pO2 106.0 mmHg (80.0-100.0) H 01/11/25 20: ABG PO2/FiO2 Ratio 504 01/11/25: ABG HCO3 21.5 mmol/L (22-26) L 01/11/25: ABG O2 Saturation > 99.1 01/11/25 20: ABG Base Excess 2.2 mmol/L (-2.0-2.0) H 01/11/25 20: Gordon Test N/a 01/11/25: A-a O2 Gradient 1.9 mmHg (5-10) L 01/11/25 20: Hematocrit 38.9 % (37-47) 01/11/25 20: Hgb O2 Saturation 98.5 % (95-100) 01/11/25 20: Carboxyhemoglobin 0.8 %THgb (0.4-20.1) 01/11/25 20:25 Methemoglobin 0.3 % (0.4-1.5) L 01/11/25 20:25 Total Hemoglobin 12.7 g/dL (12-16) 01/11/25 20: Sodium 141.0 mmol/L (131-143) 01/11/25 20: Potassium 3.5 mmol/L (3.5-5.0) 01/11/25 20: Glucose 101.0 mg/dL (70-115) 01/11/25 20: Ionized Calcium 1.2 mmol/L (1.1-1.4) 01/11/25 20: O2 Delivery Device None 01/11/25 20: FiO2 21.0 % 01/11/25: Digital Media Intern ID Black 01/11/25 20: Sodium 141 mmol/L (136-145) 01/11/25 20: Potassium 3.8 mmol/L (3.5-5.1) 01/11/25 20: Chloride 104 mmol/L (98-107) 01/11/25 20: Carbon Dioxide 23 mmol/L (22-29) 01/11/25 20: Anion Gap 17.8 (5-19) 01/11/25 20: BUN 14 mg/dL (6-20) 01/11/25 20: Creatinine 0.8 mg/dL (0.5-0.9) 01/11/25 20: GFR Calculation 81.6 mL/min (90-130) L 01/11/25 20: Glucose 103 mg/dL (65-115) 01/11/25 20: Calculated Osmolality 293 mOsm/kg (285-295) 01/11/25 20: Calcium 9.5 mg/dL (8.5-10.5) 01/11/25 20: Total Bilirubin 0.3 mg/dL (0.15-1.2) 01/11/25 20: AST 11 U/L (0-32) 01/11/25 20: ALT 10 U/L (0-33) 01/11/25 20: Alkaline Phosphatase 76 U/L (35-105) 01/11/25 20: Total Protein 7.4 g/dL (6.6-8.7) 08/13/25 20:31 Albumin 4.3 g/dL (3.5-5.2) 01/11/25 20:31 Globulin 3.1 g/dL (1.3-4.6) 01/11/25 20:31 Urine Color Yellow (Yellow) 01/11/25 20:40 Urine Appearance Cloudy (CLEAR) A 01/11/25 20:40 Urine pH 8.5 (5-7) A 01/11/25 20:40 Ur Specific [place] 1.008 (1.005-1.030) 01/11/25 20:40 Urine Protein Negative (Negative) 01/11/25 20:40 Urine Glucose (UA) Negative (Normal) 01/11/25 20:40 Urine Ketones Negative (Negative) 01/11/25 20:40 Urine Blood 1+ (Negative) A 01/11/25 20:40 Urine Nitrate Negative (Negative) 01/11/25 20:40 Urine Bilirubin Negative (Negative) 01/11/25 20:40 Urine Urobilinogen 0.2 mg/dL (Negative) 01/11/25 20:40 Ur Leukocyte Esterase Negative (Negative) 01/11/25 20:40 Amorphous Sediment Not Reportable 01/11/25 20:40 Urine Opiates Screen Negative ng/mL (Negative) 01/11/25 20:40 Ur Barbiturates Screen Negative ng/mL (Negative) 01/11/25 20:40 Ur Phencyclidine Scrn Negative ng/mL (Negative) 01/11/25 20:40 Ur Amphetamines Screen Negative ng/mL (Negative) 01/11/25 20:40 U Benzodiazepines Scrn Negative ng/mL (Negative) 01/11/25 20:40 Urine Cocaine Screen Negative ng/mL (Negative) 01/11/25 20:40 U Marijuana (THC) Screen Negative ng/mL (Negative) 01/11/25 20:40 No radiology studies performed this visit Discharge Plan Discharge Patient Disposition: Home Clinical Impression: Panic attack, Hypocapnia Condition: Stable Prescriptions: New hydroxyzine HCl 25 mg tablet 25 mg PO BID PRN (Reason: anxiety) Qty: 30 0RF No Action acetaminophen 325 mg Tablet 650 mg PO Q6H PRN (Reason: Mild/Mod Pain Or Temp >/= 101) Qty: 30 0RF Discharge Orders: Discharge ED (Routine); Ordered 01/11/25 Ordered By: Yohana Peck Discharge Diet: Usual diet Discharge Activity: Increase activity as tolerated Patient Instructions: Panic Attack (ED), Opioid Safety, Pain Management, Patient Portal & Navjot Instructions Activity Restrictions/Additional Instructions: Thank you for choosing [facility] for your healthcare needs today. You have been screened and evaluated and felt safe for discharge. Health conditions do change or evolve sometimes and as such it is important that you follow up with your Primary Doctor to be re checked, 3-5 days is a general good time frame for follow up. You are always welcome to return to the ED for re assessment if your symptoms are worsening or you have new concerns Print Language: Beninese Coding Level of Care Code ED Pen Tester for Rivas Hart
[2025-01-11 20:42] LABS: ABG PCO2 20.5 mmHg (35-45); Alveolar-Arterial Oxygen Gradi 1.9 mmHg (5-10); Arterial Blood Gas Hematocrit 38.9 % (37-47); Blood Gas Operator Identificat SAM; Blood Gas Sample Site Brachial, right; Blood Gas Sample Type Arterial; Carboxyhemoglobin 0.8 %THgb (0.4-20.1); Glucose Level-ABG 101.0 mg/dL (70-115); HCO3 ABG 21.5 mmol/L (22-26); Ionized Calcium Level - ABG 1.2 mmol/L (1.1-1.4); Methemoglobin 0.3 % (0.4-1.5); Oxygen Saturation ABG > 99.1; PO2 ABG 106.0 mmHg (80.0-100.0); PO2 FiO2 Ratio Arterial Blood 504; Potassium Level - ABG 3.5 mmol/L (3.5-5.0); Sodium Level - ABG 141.0 mmol/L (131-143)
[2025-01-11 20:44] LABS: ABG PH Result 7.63 (7.35-7.45)
[2025-01-11 20:53] LABS: Alanine Aminotransferase 10 U/L (0-33); Albumin Level 4.3 g/dL (3.5-5.2); Alkaline Phosphatase 76 U/L (35-105); Anion Gap 17.8 (5-19); Aspartate Amino Transferase 11 U/L (0-32); Blood Urea Nitrogen 14 mg/dL (6-20); Calcium 9.5 mg/dL (8.5-10.5); Carbon Dioxide 23 mmol/L (22-29); Chloride 104 mmol/L (98-107); Globulin 3.1 g/dL (1.3-4.6); Glucose 103 mg/dL (65-115); Osmolality Calculated 293 mOsm/kg (285-295); Potassium 3.8 mmol/L (3.5-5.1); Sodium 141 mmol/L (136-145); Total Protein 7.4 g/dL (6.6-8.7)
[2025-01-11 20:58] LABS: Glucose Urine UA Negative (Normal); Nitrate Urine Negative (Negative); Specific Gravity, Urine 1.008 (1.005-1.030)
[2025-01-11 21:05] LABS: PCP Screen Urine Negative (Negative)
[2025-01-11] MEDS: LORazepam 1 MG/0.5 ML injection 2 MG IM (21:12)
[2025-01-11 21:18] VITALS: BP 132/90; PULSE 64; RESP 24; O2SAT 100
[2025-01-11 22:11] VITALS: BP 102/76; PULSE 76; O2SAT 98
--- OUTSIDE RECORDS SUMMARY | 2025-01-11 23:06 | XMS_ITS | Clinical Summary ---
Author Organization [facility] Address [address] [place] [address] Phone Care Team Providers Care Senior Catering Sales Manager Name Role Phone Unavailable Primary Care Provider [...] on file Legal Sex Female 1:46 AM TRIAGE REGISTERED NURSE Gender Identity Not on file Sexual Orientation Not on file Last Filed Vital Signs Vital Sign Reading Time Taken Comments Blood Pressure 130/94 06/01/2023 9:00 PM TRIAGE REGISTERED NURSE Pulse 60 01/14/2023 3:52 PM CDT Temperature 36.1 C (97 F) 06/01/2023 9:00 PM TRIAGE REGISTERED NURSE Respiratory Rate 20 06/01/2023 9:00 PM TRIAGE REGISTERED NURSE Oxygen Saturation 98% 06/01/2023 9:00 PM TRIAGE REGISTERED NURSE Inhaled Oxygen Concentration - - Weight 99.4 kg (219 lb 3.2 oz) 06/01/2023 8:20 P M TRIAGE REGISTERED NURSE Height 160 cm (5' 3 ) 06/01/2023 8:20 PM TRIAGE REGISTERED NURSE Body Mass Index 38.83 06/01/2023 8:20 PM TRIAGE REGISTERED NURSE Plan of Treatment Health Maintenance Due Date Last Done Comments DTAP/TDAP/TD VACCINES (5 - Tdap) 02/13/2004 02/12/2004, 04/15/1995, 01/14/1995, Additional history exists HPV VACCINES (2 - 3-dose series) 06/14/2008 05/17/20 08 HPV/Cotest (21-29) 2010 CERVICAL CANCER SCREENING 10/06/2019 HPV/Cotest (30-65) 10/06/2019 PAP SMEAR 10/06/2019 INFLUENZA VACCINE (#1) 2024 HEPATITIS B VACCINES Completed 05/17/2008, 02/12/2004, 09/19/2002
--- OUTSIDE RECORDS SUMMARY | 2025-01-11 23:06 | XMS_ITS | Patient Health Record ---
Author Organization [facility] Address [address] [place] [address] Support Name Relationship Address Phone Cecil Rutledge Emergency Contact , [place] [phone] Faviola Rutledge Guarantor Unknown [phone] Allergies Allergen (clinical drug ingredient) Drug/Non Drug [...] Status W/U Status Risk Notes Problem Asthma (371998192) Asthma (J45.909) Active conf irmed Problem Tobacco use (879108121) Tobacco use (Z72.0) Active confirmed Problem Bipolar 1 disorder (934510337) Bipolar 1 disorder (F31.9) Active confirmed Problem Sciatica (87716527) Acute left-sided low back pain with left-sided sciatica (M54.42) Active confirmed Problem Morbid obesity (681167203) Severe obesity (BMI >= 40) (E66.01) Active confirmed Problem History of methamphetamine abuse (98257063355379295 ) History of methamphetamine abuse (F15.11) Active confirmed Problem 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 Plan Of Treatment No Information Insurance Providers Payer Name Payer Address Payer Phone Subscriber Number Group Number Insured Name Patient Relationship to Insured Coverage Start Date Coverage End Date [facility] [address] [address] [place] [phone] [id number] Faviola Rutledge Self - patient is the insured 3 [employer] [address] [address] [place] [address] [id number] Faviola Rutledge Self - patient is the insured 1 Medications Administered Medication Instructions Date of Administration Dosage Notes Ketorolac 60mg/2ml 01/24/2022 60 mg [facility]: 17651-162-54 LOT: [id number] EXP: 03/23 Medical (General) History Medical History History ICD Code MRSA Seasonal allergies Asthma J45.909 Surgical History Surgery Date(Month/Year) Tubal ligation 2018 Hospitalization History Reason Date(Month/Year) MRSA 2008
== END 2025-01-11 22:13 | disposition home or self-care (01) ==
PROVIDERS: Emergency Provider Emergency Medicine
DX: F41.0 Panic disorder [episodic paroxysmal anxiety] (principal); J96.90 Respiratory failure, unspecified, unspecified whether with hypoxia or hypercapnia; Z72.0 Tobacco use
CPT/HCPCS: 36415; 36600; 80051; 80053; 80306; 81001; 82330; 82805; 85025; 96372; 99284; J2060